=== PATIENT | female | born 1955 | race Caucasian/White ===

== ENCOUNTER → 2017-03-03 | Outpatient (CLI) | payer OTHER, MEDICARE ==
[~2017-03-03] MED LIST: ACET65TA; AMBI5TAB; AMILORIDE; DEMA20TA; ESTROGEL; INTAL; LASI20TA; LASI80TA; MELOPOW; NEUR400C; OASIS TEARS; POTA20TA; PROV90AE; RESTASIS; SEREVENT; SKEL800T5; THERGRAN; TRAM50TA2; TYLENOL ARTHRITIS; VITAMIN D50000 UNT; XOPE1.252; [UNRECOGNIZED DRUG - CODE]
--- NOTE | 2017-03-03 12:38 | REP ---
Chest two views HISTORY: Cough Comparison: 05/29/2015 An increase in interstitial markings is present in the lungs. Calcifications are present in the right hilum The heart is normal in size. The pulmonary vasculature is normal in appearance. There is deformity of several right ribs. IMPRESSION: Chronic interstitial fibrosis. Signed by Joon Gautam MD 03/03/2017 12:29 P
== END ==
LOC: M ADAMS 12:05
PROVIDERS: ATTEND Nurse Practitioner Adult Health
DX: J84.10 Pulmonary fibrosis, unspecified (principal)

== ENCOUNTER → 2017-08-31 | Outpatient (CLI) | payer OTHER, MEDICARE | LOC: M RAD 11:10 | DX: J32.4 Chronic pansinusitis (principal); J34.89 Other specified disorders of nose and nasal sinuses | CPT/HCPCS: 70486 ==

== ENCOUNTER → 2017-09-05 | Outpatient (CLI) | payer OTHER, MEDICARE | LOC: M ST 12:15 | DX: R47.02 Dysphasia (principal) | CPT/HCPCS: 74230 ==

== ENCOUNTER → 2017-12-13 | Outpatient (CLI) | payer OTHER, MEDICARE ==
[2017-12-13 10:40] LABS: BASO % 0.4 % (0.0-1.0); EOS # 0.2 10^3/uL (0.0-0.50); EOS % 1.6 % (0.0-3.0); HEMATOCRIT 40.7 % (36.0-47.0); IMMATURE GRANULOCYTE % 0.5 % (0-3.0); LYMPH # 1.6 10^3/uL (1.5-4.5); LYMPH % 17.2 % (24.0-44.0); MEAN CORPUSCULAR HGB CONC 31.9 g/dl (32.0-36.5); MEAN CORPUSCULAR VOLUME 84.6 fl (80.0-96.0); MONO # 1.1 10^3/uL (0.0-0.8); NEUTROPHILS # 6.3 10^3/uL (1.8-7.7); NEUTROPHILS % 68.3 % (36.0-66.0); PLATELET COUNT, AUTOMATED 240 10^3/uL (150-450); RED BLOOD COUNT 4.81 10^6/uL (4.00-5.40); RED CELL DISTRIBUTION WIDTH 14.9 % (11.5-14.5); WHITE BLOOD COUNT 9.3 10^3/uL (4.0-10.0)
== END ==
LOC: M LAB 10:19
DX: R05 Cough (principal); J45.41 Moderate persistent asthma with (acute) exacerbation
CPT/HCPCS: 71046

== ENCOUNTER → 2017-12-13 | Outpatient (CLI) | payer OTHER, MEDICARE | LOC: M RAD 08:01 | DX: J32.4 Chronic pansinusitis (principal) | CPT/HCPCS: 70486 ==

== ENCOUNTER 2018-03-02 10:51 | Outpatient (RCR) | payer OTHER, MEDICARE | END 2018-03-14 | LOC: M ST 10:51 | DX: R13.10 Dysphagia, unspecified (principal) | CPT/HCPCS: 92610 ==

== ENCOUNTER 2018-03-15 11:08 | Outpatient (RCR) | payer OTHER, MEDICARE | END 2018-04-13 | LOC: M ST 03-23 10:30 | DX: R13.10 Dysphagia, unspecified (principal) ==

== ENCOUNTER → 2018-10-10 | Outpatient (REF) | payer OTHER, MEDICARE | LOC: M LAB REF 16:56 | PROVIDERS: ATTEND Nurse Practitioner Adult Health | DX: R05 Cough (principal) ==

== ENCOUNTER → 2018-10-12 | Outpatient (REF) | payer OTHER, MEDICARE | LOC: M LAB REF 11:35 | PROVIDERS: ATTEND Nurse Practitioner Adult Health | DX: R05 Cough (principal); J45.41 Moderate persistent asthma with (acute) exacerbation ==

== ENCOUNTER → 2018-11-21 | Outpatient (CLI) | payer OTHER, MEDICARE ==
--- NOTE | 2018-11-21 22:38 | REP ---
Clinical: Right foot pain with recent trauma. Technique: AP, lateral, bilateral oblique views of the right foot. Findings: Diffuse age related degenerative changes are appreciated. No obvious definite acute fracture dislocation is appreciated although very small fracture fragments at the second metatarsophalangeal joint cannot definitively be excluded and should be correlated with point of tenderness. Consider reevaluation in 3-5 days if necessary. Impression: 1. Limited by degenerative changes. Very small fracture fragments at the second MTP joint cannot definitively be excluded (versus small chronic calcifications). Electronically Signed by Eduard Alvarez MD 11/21/2018 10:30 P
== END ==
LOC: M ADAMS 19:17
PROVIDERS: ATTEND Physician Assistant
DX: M79.671 Pain in right foot (principal); M19.071 Primary osteoarthritis, right ankle and foot

== ENCOUNTER → 2018-11-22 | Outpatient (CLI) | payer OTHER, MEDICARE ==
[2018-11-22 13:49] LABS: BASO % 0.8 % (0.0-1.0); EOS # 0.2 10^3/uL (0.0-0.50); EOS % 2.9 % (0.0-3.0); HEMATOCRIT 39.2 % (36.0-47.0); HEMOGLOBIN 12.8 g/dl (12.0-15.5); LYMPH # 0.8 10^3/uL (1.5-4.5); LYMPH % 14.5 % (24.0-44.0); MEAN CORPUSCULAR HEMOGLOBIN 28.2 pg (27.0-33.0); MEAN CORPUSCULAR HGB CONC 32.7 g/dl (32.0-36.5); MEAN CORPUSCULAR VOLUME 86.3 fl (80.0-96.0); MONO # 0.7 10^3/uL (0.0-0.8); MONO % 13.4 % (0.0-5.0); NEUTROPHILS # 3.6 10^3/uL (1.8-7.7); PLATELET COUNT, AUTOMATED 265 10^3/uL (150-450); RED BLOOD COUNT 4.54 10^6/uL (4.00-5.40); WHITE BLOOD COUNT 5.2 10^3/uL (4.0-10.0)
[2018-11-22 15:49] LABS: IMMUNOGLOBULIN M 25.2 MG/DL (40-230)
[2018-11-28 14:07] LABS: ANTI TETANUS ANTIBODY 1.84 IU/mL (<0.10); IMMUNOGLOBULIN D <1.34 mg/dL (<14.11); RUBEOLA IgG ANTIBODY >300.0 AU/mL (Immune >29.9); STREP PNEUMO TYPE 1 0.1 ug/mL (>1.3); STREP PNEUMO TYPE 12F <0.1 ug/mL (>1.3); STREP PNEUMO TYPE 14 1.1 ug/mL (>1.3); STREP PNEUMO TYPE 18C 0.5 ug/mL (>1.3); STREP PNEUMO TYPE 19A 0.5 ug/mL (>1.3); STREP PNEUMO TYPE 19F 0.4 ug/mL (>1.3); STREP PNEUMO TYPE 23F 0.2 ug/mL (>1.3); STREP PNEUMO TYPE 3 0.1 ug/mL (>1.3); STREP PNEUMO TYPE 4 <0.1 ug/mL (>1.3); STREP PNEUMO TYPE 6B <0.1 ug/mL (>1.3); STREP PNEUMO TYPE 7F 0.3 ug/mL (>1.3); STREP PNEUMO TYPE 8 0.5 ug/mL (>1.3); STREP PNEUMO TYPE 9N <0.1 ug/mL (>1.3); STREP PNEUMO TYPE 9V <0.1 ug/mL (>1.3)
== END ==
LOC: M SMT 10:20
PROVIDERS: ATTEND Allergy & Immunology Allergy
DX: J32.9 Chronic sinusitis, unspecified (principal); J30.89 Other allergic rhinitis; J45.40 Moderate persistent asthma, uncomplicated; D84.9 Immunodeficiency, unspecified

== ENCOUNTER → 2018-12-12 | Outpatient (REF) ==
[2018-12-12 19:55] LABS: BASO % 0.4 % (0.0-1.0); EOS # 0.2 10^3/uL (0.0-0.50); EOS % 2.2 % (0.0-3.0); HEMATOCRIT 41.4 % (36.0-47.0); LYMPH # 1.4 10^3/uL (1.5-4.5); LYMPH % 16.4 % (24.0-44.0); MEAN CORPUSCULAR HEMOGLOBIN 26.7 pg (27.0-33.0); MEAN CORPUSCULAR HGB CONC 31.4 g/dl (32.0-36.5); MEAN CORPUSCULAR VOLUME 85.2 fl (80.0-96.0); MONO # 1.2 10^3/uL (0.0-0.8); MONO % 13.7 % (0.0-5.0); NEUTROPHILS # 5.7 10^3/uL (1.8-7.7); NEUTROPHILS % 66.8 % (36.0-66.0); PLATELET COUNT, AUTOMATED 302 10^3/uL (150-450); RED BLOOD COUNT 4.86 10^6/uL (4.00-5.40); WHITE BLOOD COUNT 8.5 10^3/uL (4.0-10.0)
== END ==
LOC: M LAB REF 18:52
PROVIDERS: ATTEND Allergy & Immunology Allergy
DX: J45.40 Moderate persistent asthma, uncomplicated (principal)

== ENCOUNTER → 2018-12-21 | Outpatient (REF) | payer OTHER, MEDICARE ==
[2018-12-21 17:25] LABS: ALBUMIN 3.7 GM/DL (3.2-5.2); ALT/SGPT 29 U/L (12-78); BILIRUBIN,TOTAL 0.2 MG/DL (0.2-1.0); BLOOD UREA NITROGEN 19 MG/DL (7-18); CALCIUM LEVEL 9.5 MG/DL (8.8-10.2); CARBON DIOXIDE LEVEL 31 MEQ/L (21-32); CHLORIDE LEVEL 99 MEQ/L (98-107); CREATININE FOR GFR 0.65 MG/DL (0.55-1.30); GLOMERULAR FILTRATION RATE > 60.0 (>45); GLUCOSE, FASTING 95 MG/DL (70-100); LDH LACTATE DEHYDROGENASE 198 U/L (84-246); POTASSIUM SERUM 3.6 MEQ/L (3.5-5.1); SODIUM LEVEL 138 MEQ/L (136-145); TOTAL PROTEIN 7.7 GM/DL (6.4-8.2)
[2018-12-25 14:26] LABS: ALBUMIN % 53.3 % (55.8-66.1); ALPHA-1-GLOBULIN % 4.9 % (2.9-4.9); ALPHA-2-GLOBULINS % 12.6 % (7.1-11.8); BETA-1-GLOBULINS % 7.4 % (4.7-7.2)
[2018-12-25 14:27] LABS: ALPHA-1-GLOBULINS 0.38 GM/DL (0.17-0.41); ALPHA-2-GLOBULINS 0.97 GM/DL (0.42-0.99); BETA-1-GLOBULINS 0.57 GM/DL (0.28-0.60); BETA-2-GLOBULINS 0.56 GM/DL (0.19-0.55); BETA-2-GLOBULINS % 7.3 % (3.2-6.5); GAMMA GLOBULIN % 14.5 % (11.1-18.8); GAMMA GLOBULINS 1.12 GM/DL (0.65-1.58)
[2018-12-26 00:09] LABS: INTERLEUKIN 6 5.8 pg/mL (0.0-15.5)
== END ==
LOC: M SFHCPLAZ 13:44
PROVIDERS: ATTEND Internal Medicine Infectious Disease
DX: J32.9 Chronic sinusitis, unspecified (principal); D47.Z2 Castleman disease

== ENCOUNTER → 2018-12-27 | Outpatient (CLI) | payer OTHER, MEDICARE ==
[~2018-12-27] MED LIST changes: +ISOVUE-370 76% 100ML VIAL (Q9967) As Ordered ONE
--- NOTE | 2018-12-27 10:02 | REP ---
CT OF THE MAXILLOFACIAL BONES WITHOUT CONTRAST: Indication: Chronic sinusitis. Comparison: CT of the maxillofacial bones without contrast of 12/13/2017. Technique: Axial CT of the maxillofacial bones was performed. Bone reformatted images were provided within the axial and coronal planes. Findings: A right Harrison cell is present. Frontal sinuses: The frontal sinuses are clear bilaterally. There is mild mucosal thickening of the left frontal ethmoid recess. The right frontal ethmoid recess is clear. Ethmoid air cells: The ethmoid air cells are clear bilaterally. Sphenoid sinuses: There is mild mucosal thickening of the right sphenoid sinuses, similar to prior. The sphenoid septum inserts centrally. A segment of the internal carotid artery canals forms a portion of the posterior lateral finley of the sphenoid sinuses. Maxillary sinuses: The right maxillary sinus is clear. The ostiomeatal unit is patent. There is greater than 50% opacification of the left maxillary sinus, increased since the prior study. Mucosal thickening involves the left ostiomeatal unit. Nasal bones and septum: No spur identified. The medial finley of the orbit and cribriform plate are intact. There is a similar partial opacification of the left mastoid air cells. The right mastoid air cells are clear. Note is made of torus mandibularis. No suspicious foal osseous lesion. Impression: 1. When compared to the 12/13/2017 examination, there is increased opacification of the left maxillary sinus with opacification of the left ostiomeatal unit. 2. Partial opacification of the left mastoid air cells, similar to prior. Electronically Signed by Liliana Monsivais MD 12/27/2018 01:38 P
== END ==
LOC: M RAD 08:33
PROVIDERS: ATTEND Otolaryngology
DX: J32.0 Chronic maxillary sinusitis (principal)
CPT/HCPCS: 70486; Q9967

== ENCOUNTER → 2018-12-27 | Outpatient (CLI) | payer OTHER, MEDICARE ==
[~2018-12-27] MED LIST changes: -ISOVUE-370 76% 100ML VIAL (Q9967) As Ordered ONE
--- NOTE | 2018-12-31 18:57 | REP ---
CT chest with IV contrast: History: Right lung mass. Chronic sinusitis. Moderate asthma. Castleman disease. The patient also gives a history of prior lymphoma. Comparison CT study of the chest is from June 01, 2009. CT contrast dose: 100 ml of intravenous Isovue 370. CT findings: Digital preliminary professor of family medicine radiograph shows fusion hardware in the cervical spine. There are post thoracotomy changes in the right rib cage. No infiltrate is seen. There is no evidence of pulmonary embolus or thoracic aortic aneurysm. No pleural or pericardial effusion is seen. No adrenal lesion is observed. The visualized upper abdominal structures are unremarkable. There are clips in the gallbladder fossa. There is mild diffuse fatty infiltration of the liver. There is a heterogeneously calcified irregularly shaped mass in the anterior mediastinum which is actually a little smaller than it was June 01, 2009. There is a similar irregularly calcified mass in the right paratracheal region of the mediastinum posterior to the superior vena cava. This also has decreased in size somewhat in the interval since the May 2009 study. The calcifications and relative stability are compatible with the clinical diagnosis of Castleman disease. There are some stable vascular channels in the anterior mediastinal fat lateral to the mass. No new mass lesion is visible. Anterior mediastinal mass component has and an oblique somewhat linear distribution spanning approximately 7-1/2 cm from right to left x 4.2 cm craniocaudal x 2.1 cm in greatest anteroposterior dimension. The right paratracheal component measures approximately 4.5 x 2.5 x 2.5 cm. There are mild linear fibrotic changes in the right, and to a lesser extent left lung. No pulmonary nodule is appreciated. No bony destructive lesion is seen. 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 Post thoracotomy changes appear to be present on the right. Fatty infiltration of the liver and post cholecystectomy clips are noted. Otherwise no acute disease. Electronically Signed by Caesar Christopher MD 12/31/2018 07:03 P
== END ==
LOC: M RAD 08:30
PROVIDERS: ATTEND Internal Medicine Infectious Disease
DX: D47.Z2 Castleman disease (principal); J45.901 Unspecified asthma with (acute) exacerbation; K76.0 Fatty (change of) liver, not elsewhere classified; Z90.49 Acquired absence of other specified parts of digestive tract

== ENCOUNTER → 2019-01-21 | Outpatient (CLI) | payer OTHER, MEDICARE ==
[2019-01-25 14:42] LABS: STREP PNEUMO TYPE 1 >13.6 ug/mL (>1.3); STREP PNEUMO TYPE 12F 0.2 ug/mL (>1.3); STREP PNEUMO TYPE 14 >17.4 ug/mL (>1.3); STREP PNEUMO TYPE 18C 2.6 ug/mL (>1.3); STREP PNEUMO TYPE 19F >21.5 ug/mL (>1.3); STREP PNEUMO TYPE 23F >12.4 ug/mL (>1.3); STREP PNEUMO TYPE 3 4.4 ug/mL (>1.3); STREP PNEUMO TYPE 6B 0.6 ug/mL (>1.3); STREP PNEUMO TYPE 7F >12.9 ug/mL (>1.3); STREP PNEUMO TYPE 8 10.2 ug/mL (>1.3); STREP PNEUMO TYPE 9N 2.5 ug/mL (>1.3); STREP PNEUMO TYPE 9V 1.7 ug/mL (>1.3)
== END ==
LOC: M SMT 15:13
PROVIDERS: ATTEND Allergy & Immunology Allergy
DX: D84.9 Immunodeficiency, unspecified (principal)

== ENCOUNTER 2019-02-28 09:39 | Day surgery (SDC) | payer OTHER, MEDICARE ==
--- NOTE | 2019-02-21 19:21 | CR ---
DATE OF CONSULTATION: 02/21/2019 PREOPERATIVE CONSULTATION CONSULTATION REQUESTED BY: Dr. Carlson REASON FOR CONSULTATION: Left maxillary endoscopic antrostomy and left anterior ethmoidectomy scheduled at [facility] ([facility]) 02/28/2019. Dear Dr. Carlson, Thank you for asking me to see Ms. Kristyn Garcia in consultation prior to her upcoming surgery. As you know, Ms. Garcia is a 62-year-old female with a past medical history of bronchiectasis, Castlemans disease, chronic sinus allergies, recurrent sinusitis, asthma, presenting for preoperative optimization prior to her upcoming sinus surgery. Patient has been sick much of this year. She has been on recurrent prednisone and antibiotic courses. She is frustrated, but finally starting to feel better, is losing some weight, energy improving, activity improving. Patient has had a consultation with allergy/immunology, is now on allergy shots, titrating up slowly, noted to not be immune to Pneumovax. She had revaccination with improvement in the titer levels. Patient also was referred for her Castlemans disease to [facility]. No surgical intervention felt to be warranted. Her IgG was normal, so no infusion was recommended of gammaglobulin. 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 Patient reports discontinuation of nasal fluticasone with improvement in her dysphonia. She has had conflicting recommendations as to whether to continue on the fluticasone. Patient has chronic longstanding edema. She uses amiloride 5 mg pills daily, along with chlorthalidone 25 mg 1-2 pills daily, with added quick control of her edema. Patient had recent cardiac evaluation, showing no significant disease. Her blood pressure has been controlled with her diuretics, diltiazem and ramipril. Patient does have the asthma, Castlemans and bronchiectasis. She is using her nebulizer twice a day. She also got a SmartVest from pulmonary and is using this three times a day, feeling that it has significantly helped her breathing and congestion. Patient does have recurrent dermatitis and uses clobetasol for this. Patient has osteoarthritis (OA,) degenerative joint disease (DJD), multiple surgical interventions, sparingly uses tramadol, Skelaxin, Lidoderm, but most recent Lidoderm patches fall off, since she has not been using these. Patient has history of osteoporosis, follows with endocrine. Patient has history of gastroesophageal reflux disease (GERD), controlled on the pantoprazole. Patient otherwise denies any fevers or chills, chest pain or shortness of breath, nausea or vomiting, change of bowels. PAST MEDICAL HISTORY: 1. Hypertension. 2. Asthma. 3. Hiatal hernia/gastroesophageal reflux disease (GERD). 4. Venous insufficiency. 5. Osteoporosis with recurrent right metatarsal foot fractures. 6. Chronic sinusitis/allergic sinusitis. 7. Castlemans disease. 8. Chest pain with nuclear stress test 09/20/2018, showing no inducible disease. 9. Holter monitor 10/03/2018, showing normal sinus rhythm, rate ranging from 57-113, an average of 81, with rare ectopy. 10. Echocardiogram 08/24/2018, showing left ventricular diastolic function, showing abnormal relaxation, trace tricuspid insufficiency, aortic valve sclerosis. 11. Diverticulosis. 12. Status post cholecystectomy. 13. Obesity. 14. Contact dermatitis. 15. Scoliosis. 16. Osteoarthritis (OA,)/degenerative joint disease (DJD) status post cervical discectomy 04/25/2018. 17. Right total knee arthroplasty (TKA) 03/19/2018. 18. Total abdominal hysterectomy bilateral salpingo-oophorectomy (TAHBSO) for right adnexal mass. 19. Left thumb trapeziectomy. FAMILY HISTORY: Breast cancer (CA) in second degree relatives with a genetic screen negative in July 2017. PATIENTS MEDICATIONS: - amiloride 5 mg three pills by mouth every morning - amoxicillin before dental procedures - Anoro Ellipta one inhaled daily. - Acephaline one spray per nostril twice a day - B complex daily - calcium citrate twice a day - chlorthalidone 25 mg 1-2 pills daily - clobetasol twice a day as needed for dermatitis - Curcumax daily - diltiazem XR 120 mg daily - pantoprazole 40 mg daily - gabapentin 600 mg at bedtime - Klor-Con 20 mEq twice a day with one as needed - ramipril 2.5 mg at bedtime - Skelaxin as needed - tramadol as needed - Tylenol as needed - Vitamin B3 5000 International Units (IU) daily - Xopenex puffer and inhaler as needed - levocetirizine as needed DRUG ALLERGIES: LATEX GLOVES, ENVIRONMENTAL, SOAP, DETERGENTS, ADHESIVES, FUROSEMIDE, TORSEMIDE. INTOLERANCES: DEMEROL, AZITHROMYCIN. SOCIAL HISTORY: Happily , two children, retired nurse, never smoked, rarely consumes alcohol. FAMILY HISTORY: An aunt and first cousin with breast cancer. Father with osteoarthritis, prostatitis, macular degeneration, lymphoma. Mother with adenomatous chronic polyps, osteoarthritis, hypothyroidism, hypertension. Son with hypothyroidism. Sister with hyperlipidemia and migraines. Another sister with hyperlipidemia. A maternal uncle of colon cancer in his 60s. PHYSICAL EXAMINATION: Obese female, no acute distress. VITAL SIGNS: Weight 246 with a body mass index (BMI) of 41, blood pressure 122/72, with a heart rate of 87. Her oxygen saturation is 98% after exertion. HEENT EXAMINATION: Head is normocephalic. Neck is supple. Pupils equal, reactive to light. Extraocular movements are intact. No thyromegaly, jugular venous distention (JVD) or carotid bruits. RESPIRATORY: Clear to auscultation, resonant to percussion. Symmetric excursion. BREAST EXAM: Deferred. CARDIOVASCULAR: Regular rate and rhythm. Barely audible systolic murmur. ABDOMEN: Obese, soft, nontender. No hepatosplenomegaly. GYNECOLOGIC: Deferred. EXTREMITIES: No cyanosis or clubbing. She does have trace pretibial edema with mild venous stasis dermatitis, well-healed right TKA scar, well-healed left thumb scar. DERMATOLOGIC: No significant rashes, bruises, abnormal lesions. NEUROLOGIC: Alert and oriented. Cranial nerves II-XII are intact. Reflexes are symmetric. LABORATORY DATA: EKG 02/20/2019: Normal sinus rhythm, rate of 76, axis of 24, normal TN, QRS, QTC. Normal R-wave progression. No atrial or ventricular hypertrophy. No pathologic Q-waves. No significant change compared to previous EKG. Labs 02/21/2019: Show a normal complete blood count (CBC), metabolic profile, magnesium. IMPRESSION: Ms. Kristyn Garcia is a 63-year-old female with cardiovascular risk factors, positive for hypertension, age, who has no signs or symptoms indicative of cardiovascular ischemia and is felt to be optimized and at low risk for cardiovascular complications from the proposed surgical intervention. Risks can be further minimized by the following: PROBLEMS: 1. Asthma. Continue bronchodilator twice a day, 2-3 days before surgical intervention and a.m. of surgery, as well as Anoro Ellipta as usual. 2. Allergic rhinitis. Continue usual inhaled regimen perioperatively. 3. Hiatal hernia/gastroesophageal reflux disease (GERD). Take pantoprazole a.m. of surgery with sip of water. 4. Venous insufficiency. Hold all diuretics a.m. of surgery. 5. Hypertension. Hold diuretics a.m. of surgery. Take ramipril and diltiazem evening prior to surgery. 6. Osteopenia. Hold all calcium citrate a.m. of surgery. 7. Castlemans disease. Recent evaluation. Continue annual chest x-ray and recommendation to check SPEP annually. 8. Osteoarthritis (OA,)/degenerative joint disease (DJD). She is not on nonsteroidal anti-inflammatories (NSAIDs). She sparingly uses Skelaxin and tramadol and Tylenol and I have approved this perioperatively. She has had a joint replacement and reports taking amoxicillin before dental procedures, but notes that orthopedics has recommended IV cephalosporin preoperatively prior to surgical intervention, such as cefazolin 1 gram IV preoperatively. Thank you very much for this consultation. Please call with questions or concerns.
[~2019-02-28] VITALS: Ht 165.1 cm; Wt 109.8 kg
[~2019-02-28 09:39] MED LIST changes: +AMIL5TAB4 PO; +ANOR1AER IN; +CALC500C16 PO; +CHLO25TA GT; +CHLO50TA PO; +CLOB5CR TOP; +D31000CA4 PO; +DIALTAB PO; +DILT120C78 PO; +EPINEPHrine 1MG/ML INJ 30ML MD-VIAL As Ordered ONE; +GABA-845 PO; +KLOR20TA42 PO; +LEVA12INH INH; +LEVAINH INH; +LEVOTAB10 PO; +LIDOCAINE 1% MDV 20ML VIAL SQ PRN; +LIDOCAINE W/EPINEPHRINE 1% 20ML VIAL As Ordered ONE; +LR 1,000 ML IV ONE; +METHYLENE BLUE 0.5% (5MG/ML) 10 ML AMP (PROVAYBLUE)(Q9968 PER 1MG) As Ordered ONE; +MULTCAP PO; +PANT40TA3 PO; +RAMI1CAP21 PO; +RAMI1CAP22 PO; +SKEL800T97 PO; +SODIUM CHLORIDE 0.9% NASAL GEL 15GM (AYR) As Ordered ONE; +SSKI1SOL PO; +TRAM50TA2 PO; +dexameTHASONE 4 MG/ML 1ML VIAL (J1100) IV ONE
[2019-02-28] MEDS ORDERED: PROPOFOL 200 MG/20 ML VIAL As Ordered ONE ×2 (11:37→13:11)
[2019-02-28] MEDS ORDERED: REMIFENTANIL 1MG 3ML VIAL As Ordered ONE (11:38)
[2019-02-28] MEDS ORDERED: diphenhydrAMINE INJ 50MG/ML VIAL (J1200) As Ordered ONE (12:41)
[2019-02-28] MEDS ORDERED: LACRILUBE (AKWA TEARS) OPHTH OINT 3.5 GM As Ordered ONE (12:43)
[2019-02-28] MEDS ORDERED: LIDOCAINE 2% JELLY 6 ML SYRINGE As Ordered ONE (12:43)
[2019-02-28] MEDS ORDERED: ROCURONIUM BROMIDE 50 MG/5 ML VIAL As Ordered ONE ×2 (12:56→13:11)
[2019-02-28] MEDS ORDERED: ONDANSETRON 4MG/2ML VIAL (J2405) As Ordered ONE (13:11)
[2019-02-28] MEDS ORDERED: SUGAMMADEX SODIUM 500 MG/5 ML VIAL (BRIDION) As Ordered ONE (13:11)
[2019-02-28] MEDS ORDERED: ACETAMINOPHEN 1000MG 100ML IV BTL (OFIRMEV) (J0131 PER 10MG) As Ordered ONE ×2 (13:11→13:12)
[2019-02-28] MEDS ORDERED: MIDAZOLAM INJ 2 MG/2 ML VIAL (J2250) As Ordered ONE (13:11)
[2019-02-28] MEDS ORDERED: LIDOCAINE 2% INJ 100 MG/5 ML SDV (FOR ANES.) As Ordered ONE (13:11)
[2019-02-28] MEDS ORDERED: METOCLOPRAMIDE INJ 10MG/2ML VIAL (J2765) As Ordered ONE (13:11)
[2019-02-28] MEDS ORDERED: fentaNYL 250 MCG/5 ML INJECTION (J3010) As Ordered ONE (13:11)
[2019-02-28] MEDS ORDERED: dexameTHASONE 4 MG/ML 1ML VIAL (J1100) As Ordered ONE (13:11)
[2019-02-28] MEDS ORDERED: oxyCODONE 5MG TAB PO PRN (14:15)
[2019-02-28] MEDS ORDERED: LR 1,000 ML IV SCH ×2 (14:15)
[2019-02-28] MEDS ORDERED: fentaNYL 100 MCG/2 ML INJECTION (J3010) IV PRN (14:15)
[2019-02-28] MEDS ORDERED: ONDANSETRON 4MG/2ML VIAL (J2405) IV PRN (14:15)
[2019-02-28] MEDS ORDERED: LEVALBUTEROL 1.25 MG/0.5 ML CONCENTRATE NEB NEB ONE (14:30)
[2019-02-28 14:50] VITALS: BP 146/70
--- NOTE | 2019-04-04 11:21 | RO ---
DATE OF PROCEDURE: 02/28/2019 PREPROCEDURE DIAGNOSES: Chronic left maxillary sinusitis. Left chronic ethmoid sinusitis. POSTPROCEDURE DIAGNOSES: Chronic left maxillary sinusitis. Left chronic ethmoid sinusitis. PROCEDURE: 1. Endoscopic left maxillary antrostomy. 2. Endoscopic left anterior ethmoidectomy. 3. Stereotactic surgery using the Brainlab. 4. Propel implantation of the left stent. SURGEON: Dr. Pantera Carlson. MINER ASSISTANT: ANESTHESIA: General. CLINICAL PREAMBLE: This 63-year-old woman who has a longstanding history of chronic sinusitis and had multiple sinus surgeries done in her life, presented to the office complaining of recurrent disease localized to the left side of her face. CT scan showed evidence of left maxillary sinusitis and left ethmoid sinusitis. Management options including surgery listed above have been discussed. Patient understood and consented to the procedure. DESCRIPTION OF PROCEDURE: The patient was identified in pre-holding and brought to the operating room in stable condition. In the supine position on the operating table, patient received general anesthesia, followed by orotracheal intubation without incident. Patient prepped and draped in the usual fashion for the procedure. Both eyes were lubricated and protected using Tegaderm. The headband for the Brainlab system was then attached to the forehead successfully. Good surface matching was obtained between the diagnostic sum and the patient's facial surface anatomy. Pledgets soaked in 1:1000 epinephrine was then placed into each of the nasal cavities. After a waiting period, the pledgets were removed. Using the 0-degree nasal endoscope, the left nasal cavity was then inspected. Remnant of the left uncinate process was identified and infiltrated with ___% placed and lidocaine with 1:100,000 epinephrine. The uncinate was then resected. The left maxillary antrum was identified. Using biting forceps, the left antrostomy was then revised and enlarged. The left maxillary sinus was then copiously irrigated using saline solution. The left anterior ethmoid cells were identified and resected using the Blakesley forceps as well. Good hemostasis was observed by the end of the case. The Propel stent was inserted into the left ostiomeatal complex in order to insure medialization of the left middle nasal turbinate away from the maxillary antrum. Sponge and instrument counts were correct at the end of the procedure. Estimated blood loss was approximately 15 mL. General anesthesia was reversed and patient was extubated and brought to the recovery room in stable condition. In the recovery area, patient following symmetrical extraocular motions with no evidence of periorbital ecchymosis.
== END 2019-02-28 15:12 | disposition home or self-care (01) ==
LOC: M SDC 09:39
PROVIDERS: ATTEND Otolaryngology
DX: J32.0 Chronic maxillary sinusitis (principal); J32.2 Chronic ethmoidal sinusitis; I10 Essential (primary) hypertension; D47.Z2 Castleman disease; J30.89 Other allergic rhinitis; J45.909 Unspecified asthma, uncomplicated; J47.9 Bronchiectasis, uncomplicated; M15.0 Primary generalized (osteo)arthritis; M81.0 Age-related osteoporosis without current pathological fracture; K44.9 Diaphragmatic hernia without obstruction or gangrene; K21.9 Gastro-esophageal reflux disease without esophagitis; I87.2 Venous insufficiency (chronic) (peripheral); K57.30 Diverticulosis of large intestine without perforation or abscess without bleeding; E66.9 Obesity, unspecified; M41.9 Scoliosis, unspecified; R94.31 Abnormal electrocardiogram [ECG] [EKG]; R51 Headache; R32 Unspecified urinary incontinence; Z88.8 Allergy status to other drugs, medicaments and biological substances; Z91.018 Allergy to other foods; Z91.040 Latex allergy status; Z79.899 Other long term (current) drug therapy; Z96.651 Presence of right artificial knee joint; Z90.710 Acquired absence of both cervix and uterus; Z80.3 Family history of malignant neoplasm of breast; Z68.41 Body mass index [BMI] 40.0-44.9, adult
CPT/HCPCS: 31254; 31256; C2625; J0131; J1100; J1200; J2250; J2405; J2765; J3010; Q9968

== ENCOUNTER → 2019-04-23 | Outpatient (REF) | payer OTHER, MEDICARE ==
[~2019-04-23] MED LIST changes: -EPINEPHrine 1MG/ML INJ 30ML MD-VIAL As Ordered ONE; -LIDOCAINE 1% MDV 20ML VIAL SQ PRN; -LIDOCAINE W/EPINEPHRINE 1% 20ML VIAL As Ordered ONE; -LR 1,000 ML IV ONE; -METHYLENE BLUE 0.5% (5MG/ML) 10 ML AMP (PROVAYBLUE)(Q9968 PER 1MG) As Ordered ONE; -SODIUM CHLORIDE 0.9% NASAL GEL 15GM (AYR) As Ordered ONE; -dexameTHASONE 4 MG/ML 1ML VIAL (J1100) IV ONE
== END ==
LOC: M LAB REF 16:50
PROVIDERS: ATTEND Nurse Practitioner Adult Health
DX: J45.40 Moderate persistent asthma, uncomplicated (principal)

== ENCOUNTER → 2020-08-11 | Outpatient (CLI) | payer OTHER, MEDICARE ==
[~2020-08-11] MED LIST changes: +PANT40TA29 PO; -PANT40TA3 PO
== END ==
LOC: M LAB 17:01
PROVIDERS: ATTEND Internal Medicine Cardiovascular Disease
DX: R07.2 Precordial pain (principal)

== ENCOUNTER → 2020-11-04 | Outpatient (CLI) | payer OTHER, MEDICARE ==
[~2020-11-04] MED LIST changes: +ASPI81TA27 PO; +CURC1POW2 PO; +FLON1SPR; +GABA-283 PO; -GABA-845 PO; +HORS300C PO; +LOPE1CAP5; +METO1TAB87; +VITA200010 PO
== END ==
LOC: M LABSMTC 10:31
PROVIDERS: ATTEND Anesthesiology
DX: Z01.812 Encounter for preprocedural laboratory examination (principal); Z20.822 Contact with and (suspected) exposure to COVID-19

== ENCOUNTER 2020-11-09 09:03 | Day surgery (SDC) | payer OTHER, MEDICARE ==
[~2020-11-09] VITALS: Ht 165.1 cm; Wt 115.1 kg
[~2020-11-09 09:03] MED LIST changes: +NS 1,000 ML IV ONE
[2020-11-09] MEDS ORDERED: propofoL 200 MG/20 ML VIAL As Ordered ONE (10:09)
[2020-11-09] MEDS ORDERED: LIDOCAINE 2% 100MG/5ML SDV (FOR ANES.) As Ordered ONE (10:09)
--- NOTE | 2020-11-09 10:39 | ROOR ---
Patient Name: Kristyn Garcia Procedure Date: 11/09/2020 10:16 AM Date of : 1955 Age: 64 Room: [facility] Gender: Female Note Status: Finalized Procedure: Colonoscopy Indications: High risk colon cancer surveillance: Personal history of colonic polyps, Family history of colon cancer Providers: Keaton Hargrove MD Referring MD: Deirdre MACK MD Requesting Provider: Medicines: Monitored Anesthesia Care Complications: No immediate complications. Procedure: Pre-Anesthesia Assessment: - The heart rate, respiratory rate, oxygen saturations, blood pressure, adequacy of pulmonary ventilation, and response to care were monitored throughout the procedure. The Colonoscope was introduced through the anus and advanced to 10 cm into the ileum. The colonoscopy was performed without difficulty. The patient tolerated the procedure well. The quality of the bowel preparation was good. Findings: The perianal and digital rectal examinations were normal. A 5 mm polyp was found in the ascending colon. The polyp was sessile. The polyp was removed with a cold snare. Resection and retrieval were complete. Mild sigmoid diverticulosis and small internal hemorrhoids. The exam was otherwise without abnormality on direct and retroflexion views. Impression: - One 5 mm polyp in the ascending colon, removed with a cold snare. Resected and retrieved. - Mild sigmoid diverticulosis and small internal hemorrhoids. - The examination was otherwise normal on direct and retroflexion views. Recommendation: - Repeat colonoscopy in 5 years for surveillance. Procedure Code(s): --- Professional --- 65949, Colonoscopy, flexible; with removal of tumor(s), polyp(s), or other lesion(s) by snare technique Diagnosis Code(s): --- Professional --- Z80.0, Family history of malignant neoplasm of digestive organs Z86.010, Personal history of colonic polyps K63.5, Polyp of colon CPT copyright 2019 [employer]. All rights reserved. The codes documented in this report are preliminary and upon ballast cleaning operator review may be revised to meet current compliance requirements. Keaton Hargrove MD Keaton Hargrove MD 11/09/2020 10:38:56 AM Electronically signed by Keaton Hargrove MD Number of Addenda: 0 Note Initiated On: 11/09/2020 10:16 AM Estimated Blood Loss: Estimated blood loss: none.
[2020-11-09 11:11] VITALS: BP 132/72
== END 2020-11-09 11:12 | disposition home or self-care (01) ==
LOC: M OPP 09:03
PROVIDERS: ATTEND Internal Medicine Gastroenterology
DX: Z86.010 Personal history of colon polyps (principal); Z80.0 Family history of malignant neoplasm of digestive organs; K58.9 Irritable bowel syndrome, unspecified; D12.2 Benign neoplasm of ascending colon; K57.30 Diverticulosis of large intestine without perforation or abscess without bleeding; K64.8 Other hemorrhoids; I10 Essential (primary) hypertension; K44.9 Diaphragmatic hernia without obstruction or gangrene; K21.9 Gastro-esophageal reflux disease without esophagitis; M19.90 Unspecified osteoarthritis, unspecified site; M81.0 Age-related osteoporosis without current pathological fracture; G62.9 Polyneuropathy, unspecified; J45.909 Unspecified asthma, uncomplicated; I73.9 Peripheral vascular disease, unspecified; E66.9 Obesity, unspecified; Z88.8 Allergy status to other drugs, medicaments and biological substances; Z91.018 Allergy to other foods; Z91.040 Latex allergy status; Z79.51 Long term (current) use of inhaled steroids; Z79.82 Long term (current) use of aspirin; Z79.899 Other long term (current) drug therapy; Z80.3 Family history of malignant neoplasm of breast; Z82.49 Family history of ischemic heart disease and other diseases of the circulatory system; Z82.61 Family history of arthritis; Z83.49 Family history of other endocrine, nutritional and metabolic diseases; Z84.89 Family history of other specified conditions

== ENCOUNTER → 2021-01-04 | Outpatient (CLI) | payer MEDICARE ==
[~2021-01-04] MED LIST changes: -NS 1,000 ML IV ONE
--- NOTE | 2021-01-04 11:24 | REPMRS ---
Patient History The patient states she had a clinical breast exam in November 2020. Family history of breast cancer at age 50 or over in maternal aunt, colorectal cancer at age 50 or over in maternal uncle. Tomosynthesis is performed. Volpara breast density is a. [facility] lifetime risk of breast cancer 12.3%. 10 lb unintentional weight gain. Moderna vaccine 07/14/20 left arm. 08/11/20 left left arm. Patient states no breast complaints today. Patient has signed MRS History Sheet. Digital Woman Screen Mammo: January 04, 2021 - Exam #: [id number] Bilateral CC and MLO view(s) were taken. Technologist: RT Lyudmila Prior study comparison: August 20, 2013, bilateral digital mammo screening bilat, performed at [facility]. December 15, 2011, bilateral digital mammo screening bilat, performed at [facility]. FINDINGS: There are scattered fibroglandular densities. There has been no change in the appearance of the mammogram from the prior studies. There is a mild amount of residual fibroglandular tissue which is fairly symmetric. There is no interval development of dominant mass, architectural distortion, or clustered microcalcification suggestive of malignancy. Assessment: BI-RADS/ACR category 1 mammogram. Negative Mammogram. Recommendation Routine screening mammogram in 1 year (for women over age 40). This mammogram was interpreted with the aid of an FDA-approved computer-aided dectection system. Electronically Signed By: Pérez Vuong MD 01/04/21 [id number]
== END ==
LOC: M WHC 10:03
PROVIDERS: ATTEND Internal Medicine
DX: Z12.31 Encounter for screening mammogram for malignant neoplasm of breast (principal); M81.0 Age-related osteoporosis without current pathological fracture

== ENCOUNTER → 2021-01-06 | Outpatient (CLI) | payer MEDICARE ==
--- NOTE | 2021-01-06 14:02 | DEXAMM ---
INDICATION: M81.0 AGE RELATED OSTEOPOROSIS. COMPARISON: Comparison study February 01, 2000. TECHNIQUE: Bone density was measured using dual-energy x-ray absorptionmetry (DEXA). FINDINGS: AP SPINE L1-L4 BMD 1.256 g/cm2 Young Adult T-Score 0.6 Age Matched Z-Score 2.2. LT FEMUR, TOTAL BMD 0.880 g/cm2 Young Adult T-Score -1.0 Age Matched Z-Score 0.2. LT NECK BMD 0.845 g/cm2 Young Adult T-Score -1.4 Age Matched Z-Score 0.1. RT FEMUR, TOTAL BMD 0.929 g/cm2 Young Adult T-Score -0.6 Age Matched Z-Score 0.6. RT NECK BMD 0.889 g/cm2 Young Adult T-Score -1.1 Age Matched Z-Score 0.4. IMPRESSION: There is normal bone density of the spine. There is low bone density of the left hip. There is low bone density of the right hip. The density of the spine has increased 18.9% since the initial exam on February 01, 2000. The density of the left hip has decreased 14.2% since initial exam on February 01, 2000. The density of the right hip has decreased 5.3% since the initial exam on February 01, 2000. FOLLOW-UP: Recommendation for the next bone density exam: 5 years. <Electronically signed by William Christopher > 01/06/21 [id number]
== END ==
LOC: M WHC 13:08
PROVIDERS: ATTEND Internal Medicine
DX: M81.0 Age-related osteoporosis without current pathological fracture (principal)

== ENCOUNTER → 2022-09-08 | Outpatient (CLI) | payer MEDICARE ==
[~2022-09-08] MED LIST changes: -HORS300C PO; +HORS300C2 PO; -KLOR20TA42 PO; +POTA-141 PO
== END ==
LOC: M PLAIMG 13:43
PROVIDERS: ATTEND Internal Medicine
DX: M25.551 Pain in right hip (principal)

== ENCOUNTER → 2022-10-28 | Outpatient (CLI) | payer MEDICARE | LOC: M RAD 15:07 | PROVIDERS: ATTEND Internal Medicine | DX: M54.41 Lumbago with sciatica, right side (principal) ==

== ENCOUNTER → 2022-11-11 | Outpatient (CLI) | payer MEDICARE ==
[~2022-11-11] MED LIST changes: +PROHANCE 279.3MG/ML 15ML VIAL As Ordered ONE; +PROHANCE 279.3MG/ML 5ML VIAL As Ordered ONE
== END ==
LOC: M RAD 09:08
PROVIDERS: ATTEND Nurse Practitioner
DX: R93.7 Abnormal findings on diagnostic imaging of other parts of musculoskeletal system (principal); M54.50 Low back pain, unspecified; G89.29 Other chronic pain; M43.16 Spondylolisthesis, lumbar region; M54.16 Radiculopathy, lumbar region
CPT/HCPCS: 72158; A9576

== ENCOUNTER → 2022-11-17 | Outpatient (CLI) | payer MEDICARE ==
[~2022-11-17] MED LIST changes: -PROHANCE 279.3MG/ML 15ML VIAL As Ordered ONE; -PROHANCE 279.3MG/ML 5ML VIAL As Ordered ONE
== END ==
LOC: M PLAIMG 15:56
PROVIDERS: ATTEND Internal Medicine Pulmonary Disease
DX: G89.11 Acute pain due to trauma (principal)

== ENCOUNTER → 2022-12-30 | Outpatient (CLI) | payer MEDICARE ==
[~2022-12-30] MED LIST changes: +BACL10TA2 PO; +CHLO125TA PO; +FLON27.5 NARES; -GABA-283 PO; +GABA-284 PO; +GABA600T4 PO; -LOPE1CAP5; +LOPE1CAP5 PO; -METO1TAB87; +METO1TAB87 PO
== END ==
LOC: M PLAIMG 14:49
PROVIDERS: ATTEND Physical Medicine & Rehabilitation
DX: M25.511 Pain in right shoulder (principal)

== ENCOUNTER 2023-01-05 15:57 | Inpatient (IN) | payer MEDICARE ==
[~2023-01-05] VITALS: Ht 165.1 cm; Wt 111.5 kg
[~2023-01-05 15:57] MED LIST changes: -ANOR1AER IN; +ANOR1AER INH; -BACL10TA2 PO; -CHLO125TA PO; -FLON27.5 NARES; -GABA600T4 PO
[2023-01-05] MEDS ORDERED: MORPHINE 4 MG/ML 1ML VIAL IV ONE (16:15)
[2023-01-05] MEDS ORDERED: ONDANSETRON 4MG 2ML VIAL IV ONE (16:15)
[2023-01-05 16:42] LABS: BASO % 0.3 % (0.0-1.0); EOS # 0.1 10^3/uL (0.0-0.5); EOS % 1.1 % (0.0-3.0); HEMATOCRIT 44.3 % (36.0-47.0); HEMOGLOBIN 14.1 g/dl (12.0-15.5); LYMPH # 2.2 10^3/uL (1.5-5.0); LYMPH % 17.9 % (24.0-44.0); MEAN CORPUSCULAR HEMOGLOBIN 26.7 pg (27.0-33.0); MEAN CORPUSCULAR HGB CONC 31.8 g/dl (32.0-36.5); MEAN CORPUSCULAR VOLUME 83.7 fl (80.0-96.0); MONO % 8.4 % (2.0-8.0); NEUTROPHILS # 8.7 10^3/uL (1.5-8.5); NEUTROPHILS % 71.5 % (36.0-66.0); PLATELET COUNT, AUTOMATED 313 10^3/uL (150-450); RED BLOOD COUNT 5.29 10^6/uL (4.00-5.40); WHITE BLOOD COUNT 12.2 10^3/uL (4.0-10.0)
[2023-01-05 16:59] LABS: BLOOD UREA NITROGEN 25 MG/DL (9-23); CALCIUM LEVEL 9.8 MG/DL (8.3-10.6); CARBON DIOXIDE LEVEL 30 MMOL/L (20-31); CHLORIDE LEVEL 99 MMOL/L (98-107); GLOMERULAR FILTRATION RATE > 60.0 (>45); GLUCOSE, FASTING 100 MG/DL (74-106); POTASSIUM SERUM 4.3 MMOL/L (3.5-5.1); SODIUM LEVEL 136 MMOL/L (136-145)
[2023-01-05] MEDS ORDERED: MORPHINE 2 MG/ML 1ML VIAL IV PRN (18:00)
[2023-01-05] MEDS: MORPHINE 2 MG/ML 1ML VIAL IV PRN (18:08)
[2023-01-05] MEDS: NS 1,000 ML IV SCH (18:11)
[2023-01-05] MEDS ORDERED: MED REC IN PROGRESS XX SCH ×2 (19:05→19:10)
[2023-01-05] MEDS: SYMBICORT 160/4.5MCG INHALER 6GM INH SCH (20:00)
[2023-01-05 20:06] LABS: INR 1.04; PROTHROMBIN TIME 13.3 SECONDS (12.5-14.5)
[2023-01-05] MEDS ORDERED: GABA600T4 PO (20:38)
[2023-01-05] MEDS ORDERED: TRAM50TA2 PO (20:38)
[2023-01-05] MEDS ORDERED: CHLO125TA PO (20:38)
[2023-01-05] MEDS ORDERED: BACL10TA2 PO (20:38)
[2023-01-05] MEDS ORDERED: FLON27.5 NARES (20:45)
[2023-01-05] MEDS ORDERED: HOME MED LIST COMPLETE! XX SCH (20:50)
[2023-01-05 21:00] VITALS: BP 143/65; TEMP 98; O2SAT 97
[2023-01-05] MEDS ORDERED: KETOROLAC 30 MG/ML 1ML VIAL IV ONE (21:30)
[2023-01-05] MEDS ORDERED: oxyCODONE 5MG TAB PO ONE (21:30)
[2023-01-05] MEDS: GABAPENTIN 300 MG CAP PO SCH (21:48)
[2023-01-05] MEDS: PANTOPRAZOLE 40MG VIAL IV SCH (21:49)
[2023-01-05] MEDS: METOPROLOL TART 25 MG TABLET PO SCH (21:49)
[2023-01-05] MEDS: BACLOFEN 10 MG TAB PO PRN (21:49)
[2023-01-06] MEDS: MORPHINE 2 MG/ML 1ML VIAL IV PRN ×2 (01:00→05:18)
[2023-01-06] MEDS: NS 1,000 ML IV SCH (01:00)
[2023-01-06 05:15] VITALS: BP 123/60; TEMP 97.1; O2SAT 97
[2023-01-06] MEDS: BACLOFEN 10 MG TAB PO PRN ×2 (06:02→14:17)
[2023-01-06 06:47] LABS: HEMATOCRIT 37.8 % (36.0-47.0); MEAN CORPUSCULAR HEMOGLOBIN 26.9 pg (27.0-33.0); MEAN CORPUSCULAR VOLUME 84.2 fl (80.0-96.0); PLATELET COUNT, AUTOMATED 222 10^3/uL (150-450); RED BLOOD COUNT 4.49 10^6/uL (4.00-5.40); WHITE BLOOD COUNT 8.2 10^3/uL (4.0-10.0)
[2023-01-06 06:52] LABS: HEMOGLOBIN 12.1 g/dl (12.0-15.5)
[2023-01-06 07:15] LABS: ALBUMIN 3.2 G/DL (3.2-5.2); ALKALINE PHOSPHATASE 119 U/L (46-116); ALT/SGPT 17 U/L (7.0-40); AST/SGOT < 8 U/L (<34); BILIRUBIN,TOTAL 0.7 MG/DL (0.3-1.2); BLOOD UREA NITROGEN 19 MG/DL (9-23); CALCIUM LEVEL 8.4 MG/DL (8.3-10.6); CARBON DIOXIDE LEVEL 31 MMOL/L (20-31); CHLORIDE LEVEL 100 MMOL/L (98-107); CREATININE FOR GFR 0.71 MG/DL (0.55-1.30); GLOMERULAR FILTRATION RATE > 60.0 (>45); GLUCOSE, FASTING 87 MG/DL (74-106); SODIUM LEVEL 136 MMOL/L (136-145); TOTAL PROTEIN 6.4 G/DL (5.7-8.2)
[2023-01-06] MEDS ORDERED: LEVALBUTEROL 1.25MG 0.5ML CONCENTRATE NEB INH PRN (07:20)
[2023-01-06] MEDS ORDERED: LEVALBUTEROL HFA 45MCG/ACT 15GM INHALER INH PRN (07:20)
[2023-01-06] MEDS ORDERED: LEVA1.2525 INH (07:45)
[2023-01-06] MEDS ORDERED: HOME MED LIST COMPLETE! XX SCH (07:50)
[2023-01-06] MEDS ORDERED: MORPHINE 4 MG/ML 1ML VIAL IV ONE (08:00)
[2023-01-06] MEDS: METOPROLOL TART 25 MG TABLET PO SCH (08:00)
[2023-01-06] MEDS ORDERED: SYMBICORT 160/4.5MCG INHALER 6GM INH SCH (08:00)
[2023-01-06] MEDS ORDERED: MIRALAX *UNIT DOSE* 17GM PACKET PO PRN (08:05)
[2023-01-06] MEDS: SYMBICORT 160/4.5MCG INHALER 6GM INH SCH ×3 (08:30→20:00)
[2023-01-06] MEDS: DOCUSATE SODIUM 100MG CAPSULE PO SCH (10:22)
[2023-01-06] MEDS: aMILoride 5 MG TAB PO SCH (12:10)
[2023-01-06] MEDS: MORPHINE 4 MG/ML 1ML VIAL IV PRN ×2 (12:10→16:20)
[2023-01-06 14:00] VITALS: BP 123/63; TEMP 97.4; O2SAT 98
[2023-01-06] MEDS: ACETAMINOPHEN TAB 650MG DOSE (2X325MG) PO PRN (14:17)
[2023-01-06] MEDS ORDERED: HYDROMORPHONE HCL 0.5 MG/ 0.5 ML SYRINGE IV PRN (16:40)
[2023-01-06] MEDS ORDERED: MEPERIDINE 25 MG/ML 1ML VIAL IV PRN (16:40)
[2023-01-06] MEDS ORDERED: ONDANSETRON 4MG 2ML VIAL IV PRN (16:40)
[2023-01-06] MEDS ORDERED: oxyCODONE 5MG TAB PO PRN (16:40)
[2023-01-06] MEDS ORDERED: fentaNYL 100 MCG/2 ML INJECTION As Ordered ONE ×2 (19:02→20:52)
[2023-01-06] MEDS ORDERED: MIDAZOLAM INJ 2MG/2ML VIAL As Ordered ONE (19:02)
[2023-01-06] MEDS ORDERED: LIDOCAINE 2% 100MG/5ML SDV (FOR ANES.) As Ordered ONE (19:03)
[2023-01-06] MEDS ORDERED: ROCURONIUM BROMIDE 50MG/5ML VIAL As Ordered ONE ×2 (19:03→20:49)
[2023-01-06] MEDS ORDERED: ONDANSETRON 4MG 2ML VIAL As Ordered ONE ×2 (19:04→23:24)
[2023-01-06] MEDS ORDERED: propofoL 200 MG/20 ML VIAL As Ordered ONE (19:04)
[2023-01-06] MEDS ORDERED: TRANEXAMIC ACID 100 MG/ML 10ML VIAL As Ordered ONE (19:16)
[2023-01-06] MEDS ORDERED: ceFAZolin 2 GM/D5W 50 ML IV BAG As Ordered ONE (19:23)
[2023-01-06] MEDS ORDERED: LIDOCAINE 1% MDV 20ML VIAL As Ordered ONE (19:24)
[2023-01-06] MEDS ORDERED: LIDOCAINE 1% MDV 20ML VIAL ONE (19:24)
[2023-01-06] MEDS ORDERED: VANCOMYCIN 1000MG/20ML VIAL ONE (19:24)
[2023-01-06] MEDS ORDERED: ceFAZolin 1GM VIAL As Ordered ONE (20:35)
[2023-01-06] MEDS ORDERED: dilTIAZem 120MG **CD** CAPSULE PO SCH (21:00)
[2023-01-06] MEDS ORDERED: VANCOMYCIN 1000MG/20ML VIAL As Ordered ONE (21:53)
[2023-01-06] MEDS ORDERED: ACETAMINOPHEN 1000MG 100ML IV BAG As Ordered ONE (21:58)
[2023-01-06] MEDS ORDERED: SUGAMMADEX SODIUM 500 MG/5 ML VIAL (BRIDION) As Ordered ONE (22:07)
[2023-01-06] MEDS: fentaNYL 100 MCG/2 ML INJECTION IV PRN ×2 (23:28→23:35)
[2023-01-06] MEDS ORDERED: METOCLOPRAMIDE INJ 10MG/2ML VIAL IV PRN (23:50)
[2023-01-07] VITALS (16 sets, daily range): BP systolic 72–147; BP diastolic 54–82; TEMP 96–98.7; O2SAT 92–99
[2023-01-07] MEDS ORDERED: LR 1,000 ML IV SCH ×2 (00:45→00:50)
[2023-01-07] MEDS: GABAPENTIN 300 MG CAP PO SCH ×2 (01:00→22:19)
[2023-01-07] MEDS: PANTOPRAZOLE 40MG VIAL IV SCH ×2 (01:00→22:19)
[2023-01-07] MEDS: DOCUSATE SODIUM 100MG CAPSULE PO SCH ×3 (01:00→22:19)
[2023-01-07] MEDS: SENNA 8.6 MG TAB (SENOKOT) PO SCH ×2 (01:00→22:20)
[2023-01-07] MEDS: METOPROLOL TART 25 MG TABLET PO SCH ×2 (01:01→09:07)
[2023-01-07] MEDS: MORPHINE 2 MG/ML 1ML VIAL IV PRN (01:37)
[2023-01-07] MEDS: ACETAMINOPHEN TAB 650MG DOSE (2X325MG) PO PRN ×3 (06:18→22:20)
[2023-01-07 06:45] LABS: HEMOGLOBIN 10.3 g/dl (12.0-15.5); MEAN CORPUSCULAR HEMOGLOBIN 26.8 pg (27.0-33.0); MEAN CORPUSCULAR HGB CONC 32.2 g/dl (32.0-36.5); MEAN CORPUSCULAR VOLUME 83.3 fl (80.0-96.0); PLATELET COUNT, AUTOMATED 165 10^3/uL (150-450); RED BLOOD COUNT 3.84 10^6/uL (4.00-5.40); WHITE BLOOD COUNT 13.1 10^3/uL (4.0-10.0)
[2023-01-07 07:18] LABS: ALBUMIN 2.7 G/DL (3.2-5.2); ALKALINE PHOSPHATASE 113 U/L (46-116); ALT/SGPT 17 U/L (7.0-40); AST/SGOT 14 U/L (<34); BILIRUBIN,TOTAL 0.5 MG/DL (0.3-1.2); BLOOD UREA NITROGEN 14 MG/DL (9-23); CALCIUM LEVEL 8.5 MG/DL (8.3-10.6); CARBON DIOXIDE LEVEL 27 MMOL/L (20-31); CHLORIDE LEVEL 101 MMOL/L (98-107); CREATININE FOR GFR 0.51 MG/DL (0.55-1.30); GLOMERULAR FILTRATION RATE > 60.0 (>45); GLUCOSE, FASTING 140 MG/DL (74-106); POTASSIUM SERUM 4.5 MMOL/L (3.5-5.1); SODIUM LEVEL 137 MMOL/L (136-145); TOTAL PROTEIN 5.7 G/DL (5.7-8.2)
[2023-01-07] MEDS: SYMBICORT 160/4.5MCG INHALER 6GM INH SCH ×2 (07:56→20:00)
[2023-01-07] MEDS: BACLOFEN 10 MG TAB PO PRN ×2 (09:06→22:19)
[2023-01-07] MEDS: aMILoride 5 MG TAB PO SCH (09:07)
[2023-01-07] MEDS ORDERED: NS 500 ML IV ONE (14:45)
[2023-01-07 17:41] LABS: HEMATOCRIT 29.1 % (36.0-47.0); HEMOGLOBIN 9.4 g/dl (12.0-15.5); MEAN CORPUSCULAR HEMOGLOBIN 27.1 pg (27.0-33.0); MEAN CORPUSCULAR HGB CONC 32.3 g/dl (32.0-36.5); MEAN CORPUSCULAR VOLUME 83.9 fl (80.0-96.0); PLATELET COUNT, AUTOMATED 137 10^3/uL (150-450); RED BLOOD COUNT 3.47 10^6/uL (4.00-5.40); WHITE BLOOD COUNT 13.9 10^3/uL (4.0-10.0)
[2023-01-07] MEDS: MORPHINE 4 MG/ML 1ML VIAL IV PRN ×2 (19:34→23:38)
[2023-01-07] MEDS: METOPROLOL TART 12.5 MG PER 1/2 TAB PO SCH (22:21)
[2023-01-08] VITALS (9 sets, daily range): BP systolic 115–155; BP diastolic 54–90; TEMP 97.2–99.1; O2SAT 90–96
[2023-01-08 02:27] LABS: HEMATOCRIT 27.7 % (36.0-47.0); MEAN CORPUSCULAR HEMOGLOBIN 27.6 pg (27.0-33.0); MEAN CORPUSCULAR HGB CONC 32.5 g/dl (32.0-36.5); PLATELET COUNT, AUTOMATED 101 10^3/uL (150-450); RED BLOOD COUNT 3.26 10^6/uL (4.00-5.40); WHITE BLOOD COUNT 11.5 10^3/uL (4.0-10.0)
[2023-01-08] MEDS: ACETAMINOPHEN TAB 650MG DOSE (2X325MG) PO PRN (05:57)
[2023-01-08] MEDS: MORPHINE 2 MG/ML 1ML VIAL IV PRN (05:58)
[2023-01-08] MEDS: BACLOFEN 10 MG TAB PO PRN ×3 (06:04→21:53)
[2023-01-08 07:16] LABS: HEMATOCRIT 28.1 % (36.0-47.0); MEAN CORPUSCULAR HEMOGLOBIN 27.2 pg (27.0-33.0); MEAN CORPUSCULAR VOLUME 84.9 fl (80.0-96.0); PLATELET COUNT, AUTOMATED 101 10^3/uL (150-450); RED BLOOD COUNT 3.31 10^6/uL (4.00-5.40); WHITE BLOOD COUNT 9.4 10^3/uL (4.0-10.0)
[2023-01-08 07:39] LABS: ALBUMIN 2.6 G/DL (3.2-5.2); ALKALINE PHOSPHATASE 96 U/L (46-116); ALT/SGPT 13 U/L (7.0-40); AST/SGOT 14 U/L (<34); BILIRUBIN,TOTAL 0.6 MG/DL (0.3-1.2); BLOOD UREA NITROGEN 14 MG/DL (9-23); CALCIUM LEVEL 8.1 MG/DL (8.3-10.6); CARBON DIOXIDE LEVEL 30 MMOL/L (20-31); CHLORIDE LEVEL 99 MMOL/L (98-107); CREATININE FOR GFR 0.57 MG/DL (0.55-1.30); GLOMERULAR FILTRATION RATE > 60.0 (>45); GLUCOSE, FASTING 103 MG/DL (74-106); POTASSIUM SERUM 3.5 MMOL/L (3.5-5.1); SODIUM LEVEL 136 MMOL/L (136-145); TOTAL PROTEIN 5.5 G/DL (5.7-8.2)
[2023-01-08] MEDS: SYMBICORT 160/4.5MCG INHALER 6GM INH SCH (07:45)
[2023-01-08] MEDS: METOPROLOL TART 12.5 MG PER 1/2 TAB PO SCH (09:00)
[2023-01-08] MEDS: aMILoride 5 MG TAB PO SCH (09:35)
[2023-01-08] MEDS: DOCUSATE SODIUM 100MG CAPSULE PO SCH ×2 (09:35→21:53)
[2023-01-08] MEDS: PERCOCET 5MG/325MG TAB PO PRN (10:38)
[2023-01-08] MEDS: MORPHINE 4 MG/ML 1ML VIAL IV PRN ×2 (15:14→22:23)
[2023-01-08 15:48] LABS: CK-MB VALUE MASS < 1.0 NG/ML (<3.6)
[2023-01-08 15:49] LABS: CPK CREATINE PHOSPHOKINASE 202 U/L (34-145); MB/CK RELATIVE INDEX 0.49 (< OR =4)
[2023-01-08 16:48] LABS: HEMATOCRIT 28.1 % (36.0-47.0); HEMOGLOBIN 9.2 g/dl (12.0-15.5); MEAN CORPUSCULAR HEMOGLOBIN 27.5 pg (27.0-33.0); MEAN CORPUSCULAR HGB CONC 32.7 g/dl (32.0-36.5); MEAN CORPUSCULAR VOLUME 83.9 fl (80.0-96.0); PLATELET COUNT, AUTOMATED 107 10^3/uL (150-450); RED BLOOD COUNT 3.35 10^6/uL (4.00-5.40); WHITE BLOOD COUNT 12.2 10^3/uL (4.0-10.0)
[2023-01-08] MEDS: METOPROLOL TART 25 MG TABLET PO SCH ×2 (16:48→21:54)
[2023-01-08] MEDS ORDERED: ISOVUE-370 76% 100ML VIAL As Ordered ONE (16:49)
[2023-01-08 17:11] LABS: ALBUMIN 2.7 G/DL (3.2-5.2); ALKALINE PHOSPHATASE 103 U/L (46-116); ALT/SGPT 15 U/L (7.0-40); AST/SGOT 19 U/L (<34); BILIRUBIN,TOTAL 0.4 MG/DL (0.3-1.2); BLOOD UREA NITROGEN 14 MG/DL (9-23); CALCIUM LEVEL 8.5 MG/DL (8.3-10.6); CARBON DIOXIDE LEVEL 29 MMOL/L (20-31); CHLORIDE LEVEL 100 MMOL/L (98-107); CREATININE FOR GFR 0.49 MG/DL (0.55-1.30); GLOMERULAR FILTRATION RATE > 60.0 (>45); GLUCOSE, FASTING 109 MG/DL (74-106); POTASSIUM SERUM 3.9 MMOL/L (3.5-5.1); SODIUM LEVEL 135 MMOL/L (136-145); TOTAL PROTEIN 5.9 G/DL (5.7-8.2)
[2023-01-08] MEDS ORDERED: HEPARIN DRIP 25,000 UNITS in IV 1 EA IV SCH (18:40)
[2023-01-08] MEDS ORDERED: HEPARIN SOD (PORCINE) 5000UNITS/ML 1ML VIAL/SYRINGE IV PRN (18:45)
[2023-01-08] MEDS ORDERED: HEPARIN SOD (PORCINE) 5000UNITS/ML 1ML VIAL/SYRINGE IV ONE (18:45)
[2023-01-08 19:38] LABS: CK-MB VALUE MASS 1.4 NG/ML (<3.6)
[2023-01-08 19:40] LABS: MB/CK RELATIVE INDEX 0.69 (< OR =4)
[2023-01-08 19:55] LABS: MAGNESIUM LEVEL 1.9 MG/DL (1.8-2.4); PHOSPHORUS LEVEL 2.4 MG/DL (2.4-5.1)
[2023-01-08] MEDS: HEPARIN DRIP 25,000 UNITS in IV 1 EA IV SCH (20:09)
[2023-01-08] MEDS ORDERED: METOPROLOL TART 25 MG TABLET PO SCH (21:00)
[2023-01-08] MEDS: GABAPENTIN 300 MG CAP PO SCH (21:53)
[2023-01-08] MEDS: SENNA 8.6 MG TAB (SENOKOT) PO SCH (21:53)
[2023-01-08] MEDS: PANTOPRAZOLE 40MG VIAL IV SCH (21:53)
[2023-01-09] VITALS (14 sets, daily range): BP systolic 95–127; BP diastolic 50–87; TEMP 97.9–98.8; O2SAT 92–99
[2023-01-09 01:51] LABS: HEMATOCRIT 25.6 % (36.0-47.0); HEMOGLOBIN 8.4 g/dl (12.0-15.5)
[2023-01-09 06:02] LABS: HEMATOCRIT 25.9 % (36.0-47.0); HEMOGLOBIN 8.3 g/dl (12.0-15.5); MEAN CORPUSCULAR HEMOGLOBIN 27.1 pg (27.0-33.0); MEAN CORPUSCULAR VOLUME 84.6 fl (80.0-96.0); PLATELET COUNT, AUTOMATED 114 10^3/uL (150-450); RED BLOOD COUNT 3.06 10^6/uL (4.00-5.40); WHITE BLOOD COUNT 9.3 10^3/uL (4.0-10.0)
[2023-01-09 06:08] LABS: CK-MB VALUE MASS 1.2 NG/ML (<3.6)
[2023-01-09 06:09] LABS: MB/CK RELATIVE INDEX 0.72 (< OR =4)
[2023-01-09 06:10] LABS: ALBUMIN 2.5 G/DL (3.2-5.2); ALKALINE PHOSPHATASE 97 U/L (46-116); ALT/SGPT 14 U/L (7.0-40); AST/SGOT 16 U/L (<34); BILIRUBIN,TOTAL 0.4 MG/DL (0.3-1.2); BLOOD UREA NITROGEN 11 MG/DL (9-23); CALCIUM LEVEL 8.3 MG/DL (8.3-10.6); CARBON DIOXIDE LEVEL 32 MMOL/L (20-31); CHLORIDE LEVEL 102 MMOL/L (98-107); CREATININE FOR GFR 0.54 MG/DL (0.55-1.30); GLOMERULAR FILTRATION RATE > 60.0 (>45); GLUCOSE, FASTING 96 MG/DL (74-106); POTASSIUM SERUM 4.1 MMOL/L (3.5-5.1); SODIUM LEVEL 139 MMOL/L (136-145); TOTAL PROTEIN 5.4 G/DL (5.7-8.2)
[2023-01-09] MEDS: aMILoride 5 MG TAB PO SCH (08:11)
[2023-01-09] MEDS: DOCUSATE SODIUM 100MG CAPSULE PO SCH ×2 (08:11→21:00)
[2023-01-09] MEDS: METOPROLOL TART 25 MG TABLET PO SCH ×2 (08:12→21:00)
[2023-01-09] MEDS: PERCOCET 5MG/325MG TAB PO PRN (10:25)
[2023-01-09] MEDS ORDERED: ISOVUE-370 76% 100ML VIAL As Ordered ONE (10:57)
[2023-01-09] MEDS: HEPARIN DRIP 25,000 UNITS in IV 1 EA IV SCH (11:04)
[2023-01-09] MEDS ORDERED: HEPARIN SOD (PORCINE) 5000UNITS/ML 1ML VIAL/SYRINGE IV ONE (11:55)
[2023-01-09] MEDS ORDERED: fentaNYL 100 MCG/2 ML INJECTION As Ordered ONE ×3 (15:17→20:23)
[2023-01-09] MEDS ORDERED: ISOVUE-300 61% 100ML VIAL As Ordered ONE (15:17)
[2023-01-09] MEDS ORDERED: MIDAZOLAM INJ 2MG/2ML VIAL As Ordered ONE ×2 (15:18→19:38)
[2023-01-09] MEDS ORDERED: LIDOCAINE 1% MDV 20ML VIAL As Ordered ONE (15:18)
[2023-01-09] MEDS ORDERED: HEPARIN 1,000UNITS/ML 10ML VIAL (FOR RADIOLOGY & DIALYSIS ONLY) As Ordered ONE (15:18)
[2023-01-09] MEDS ORDERED: NS 1,000 ML IV SCH (15:35)
[2023-01-09] MEDS ORDERED: ceFAZolin SOD 2 GM in IV 1 EA IV ONE (15:35)
[2023-01-09] MEDS: MORPHINE 4 MG/ML 1ML VIAL IV PRN (17:24)
[2023-01-09 18:12] LABS: HEMATOCRIT 30.4 % (36.0-47.0); HEMOGLOBIN 9.8 g/dl (12.0-15.5); MEAN CORPUSCULAR HEMOGLOBIN 27.5 pg (27.0-33.0); MEAN CORPUSCULAR HGB CONC 32.2 g/dl (32.0-36.5); MEAN CORPUSCULAR VOLUME 85.4 fl (80.0-96.0); PLATELET COUNT, AUTOMATED 133 10^3/uL (150-450); RED BLOOD COUNT 3.56 10^6/uL (4.00-5.40)
[2023-01-09 18:25] LABS: INR 1.08; PARTIAL THROMBOPLASTIN TIME 24.3 SECONDS (24.8-34.2); PROTHROMBIN TIME 13.7 SECONDS (12.5-14.5)
[2023-01-09 18:43] LABS: ALBUMIN 2.6 G/DL (3.2-5.2); ALKALINE PHOSPHATASE 103 U/L (46-116); ALT/SGPT 16 U/L (7.0-40); AST/SGOT 19 U/L (<34); BILIRUBIN,TOTAL 0.6 MG/DL (0.3-1.2); BLOOD UREA NITROGEN 13 MG/DL (9-23); CALCIUM LEVEL 8.4 MG/DL (8.3-10.6); CARBON DIOXIDE LEVEL 28 MMOL/L (20-31); CHLORIDE LEVEL 101 MMOL/L (98-107); CREATININE FOR GFR 0.48 MG/DL (0.55-1.30); GLOMERULAR FILTRATION RATE > 60.0 (>45); GLUCOSE, FASTING 88 MG/DL (74-106); POTASSIUM SERUM 3.8 MMOL/L (3.5-5.1); SODIUM LEVEL 139 MMOL/L (136-145); TOTAL PROTEIN 5.8 G/DL (5.7-8.2)
[2023-01-09] MEDS ORDERED: propofoL 200 MG/20 ML VIAL As Ordered ONE ×2 (19:38→20:19)
[2023-01-09] MEDS ORDERED: LIDOCAINE 2% 100MG/5ML SDV (FOR ANES.) As Ordered ONE (19:38)
[2023-01-09] MEDS ORDERED: ONDANSETRON 4MG 2ML VIAL As Ordered ONE (19:41)
[2023-01-09] MEDS ORDERED: ceFAZolin 1GM VIAL As Ordered ONE (19:58)
[2023-01-09] MEDS ORDERED: ceFAZolin 1GM VIAL ONE (20:00)
[2023-01-09] MEDS ORDERED: VANCOMYCIN 1000MG/20ML VIAL ONE (20:00)
[2023-01-09] MEDS ORDERED: PHENYLephrine 500MCG 5ML (100MCG/ML) SYRINGE As Ordered ONE (20:07)
[2023-01-09] MEDS ORDERED: ACETAMINOPHEN 1000MG 100ML IV BAG As Ordered ONE (20:33)
[2023-01-09] MEDS ORDERED: VANCOMYCIN 1000MG/20ML VIAL As Ordered ONE (20:55)
[2023-01-09] MEDS: GABAPENTIN 300 MG CAP PO SCH (21:00)
[2023-01-09] MEDS: SENNA 8.6 MG TAB (SENOKOT) PO SCH (21:00)
[2023-01-09] MEDS: PANTOPRAZOLE 40MG VIAL IV SCH (21:00)
[2023-01-09] MEDS ORDERED: oxyCODONE 5MG TAB PO PRN (21:45)
[2023-01-09] MEDS ORDERED: fentaNYL 100 MCG/2 ML INJECTION IV PRN (21:45)
[2023-01-09] MEDS ORDERED: LR 1,000 ML IV SCH (21:45)
[2023-01-09] MEDS ORDERED: ONDANSETRON 4MG 2ML VIAL IV PRN (21:45)
[2023-01-09] MEDS: HYDROMORPHONE HCL 0.5 MG/ 0.5 ML SYRINGE IV PRN ×2 (23:03→23:09)
[2023-01-10] VITALS (29 sets, daily range): BP systolic 98–137; BP diastolic 55–74; TEMP 96.9–98.4; O2SAT 95–100
[2023-01-10] MEDS: LR 1,000 ML IV SCH ×2 (00:46→10:23)
[2023-01-10] MEDS: MORPHINE 4 MG/ML 1ML VIAL IV PRN (02:53)
[2023-01-10] MEDS: BACLOFEN 10 MG TAB PO PRN ×2 (02:53→11:00)
[2023-01-10 05:24] LABS: HEMATOCRIT 23.4 % (36.0-47.0); MEAN CORPUSCULAR HEMOGLOBIN 27.9 pg (27.0-33.0); MEAN CORPUSCULAR HGB CONC 32.5 g/dl (32.0-36.5); PLATELET COUNT, AUTOMATED 114 10^3/uL (150-450); RED BLOOD COUNT 2.72 10^6/uL (4.00-5.40); WHITE BLOOD COUNT 9.3 10^3/uL (4.0-10.0)
[2023-01-10 05:29] LABS: HEMOGLOBIN 7.6 g/dl (12.0-15.5)
[2023-01-10 05:53] LABS: ALBUMIN 1.9 G/DL (3.2-5.2); ALKALINE PHOSPHATASE 80 U/L (46-116); ALT/SGPT 11 U/L (7.0-40); AST/SGOT 14 U/L (<34); BILIRUBIN,TOTAL 0.4 MG/DL (0.3-1.2); BLOOD UREA NITROGEN 11 MG/DL (9-23); CALCIUM LEVEL 7.6 MG/DL (8.3-10.6); CARBON DIOXIDE LEVEL 27 MMOL/L (20-31); CHLORIDE LEVEL 102 MMOL/L (98-107); CREATININE FOR GFR 0.43 MG/DL (0.55-1.30); GLOMERULAR FILTRATION RATE > 60.0 (>45); GLUCOSE, FASTING 123 MG/DL (74-106); POTASSIUM SERUM 3.9 MMOL/L (3.5-5.1); SODIUM LEVEL 136 MMOL/L (136-145); TOTAL PROTEIN 4.4 G/DL (5.7-8.2)
[2023-01-10] MEDS: PERCOCET 5MG/325MG TAB PO PRN ×2 (06:47→23:59)
[2023-01-10] MEDS: METOPROLOL TART 25 MG TABLET PO SCH ×2 (08:25→21:30)
[2023-01-10] MEDS: SENNA 8.6 MG TAB (SENOKOT) PO SCH ×2 (08:25→21:30)
[2023-01-10] MEDS: DOCUSATE SODIUM 100MG CAPSULE PO SCH ×2 (08:26→21:30)
[2023-01-10] MEDS: ACETAMINOPHEN TAB 650MG DOSE (2X325MG) PO PRN (15:56)
[2023-01-10 16:23] LABS: HEMATOCRIT 31.3 % (36.0-47.0)
[2023-01-10] MEDS: GABAPENTIN 300 MG CAP PO SCH (21:30)
[2023-01-10] MEDS: PANTOPRAZOLE 40MG VIAL IV SCH (21:31)
[2023-01-10 21:47] LABS: HEMATOCRIT 32.3 % (36.0-47.0); HEMOGLOBIN 10.5 g/dl (12.0-15.5)
[2023-01-11] VITALS (20 sets, daily range): BP systolic 106–126; BP diastolic 51–75; TEMP 97.5–98.3; O2SAT 96–100
[2023-01-11 05:02] LABS: BASO % 0.5 % (0.0-1.0); EOS # 0.3 10^3/uL (0.0-0.5); EOS % 3.5 % (0.0-3.0); HEMATOCRIT 28.8 % (36.0-47.0); HEMOGLOBIN 9.5 g/dl (12.0-15.5); LYMPH # 1.5 10^3/uL (1.5-5.0); LYMPH % 18.4 % (24.0-44.0); MEAN CORPUSCULAR HEMOGLOBIN 28.8 pg (27.0-33.0); MEAN CORPUSCULAR VOLUME 87.3 fl (80.0-96.0); MONO # 0.9 10^3/uL (0.0-0.8); MONO % 10.7 % (2.0-8.0); NEUTROPHILS # 5.4 10^3/uL (1.5-8.5); NEUTROPHILS % 66.3 % (36.0-66.0); PLATELET COUNT, AUTOMATED 129 10^3/uL (150-450); WHITE BLOOD COUNT 8.2 10^3/uL (4.0-10.0)
[2023-01-11 05:23] LABS: BLOOD UREA NITROGEN 11 MG/DL (9-23); CARBON DIOXIDE LEVEL 29 MMOL/L (20-31); CHLORIDE LEVEL 104 MMOL/L (98-107); CREATININE FOR GFR 0.51 MG/DL (0.55-1.30); GLOMERULAR FILTRATION RATE > 60.0 (>45); GLUCOSE, FASTING 88 MG/DL (74-106); SODIUM LEVEL 140 MMOL/L (136-145)
[2023-01-11] MEDS ORDERED: UNRESOLVED PATIENT OWN MED ORDER XX ONE (05:45)
[2023-01-11] MEDS: DOCUSATE SODIUM 100MG CAPSULE PO SCH ×2 (09:26→20:35)
[2023-01-11] MEDS: SENNA 8.6 MG TAB (SENOKOT) PO SCH ×2 (09:27→20:34)
[2023-01-11] MEDS: METOPROLOL TART 25 MG TABLET PO SCH ×2 (09:28→20:35)
[2023-01-11] MEDS: BACLOFEN 10 MG TAB PO PRN ×2 (09:47→20:36)
[2023-01-11] MEDS ORDERED: KETOROLAC 30 MG/ML 1ML VIAL IV ONE (14:00)
[2023-01-11] MEDS ORDERED: SYMBICORT 160/4.5MCG INHALER 6GM INH SCH (14:00)
[2023-01-11] MEDS ORDERED: ALBUTEROL 90 MCG/ACT 8GM HFA INHALER INH PRN (14:00)
[2023-01-11] MEDS ORDERED: SUMAtriptan SUCCINATE 25 MG TAB PO ONE (15:00)
[2023-01-11] MEDS: FORMOTEROL FUMARATE 20 MCG/2 ML INHALATION SOLUTION (PERFOROMIST) INH SCH ×2 (15:11→19:48)
[2023-01-11] MEDS: TIOTROPIUM INHALER/CAPSULE (SPIRIVA) INH SCH (15:30)
[2023-01-11] MEDS ORDERED: NON-FORMULARY COMPOUNDED MEDICATION SQ ONE ×2 (18:50)
[2023-01-11 20:16] LABS: HEMATOCRIT 30.9 % (36.0-47.0); HEMOGLOBIN 9.8 g/dl (12.0-15.5); MEAN CORPUSCULAR HGB CONC 31.7 g/dl (32.0-36.5); MEAN CORPUSCULAR VOLUME 88.3 fl (80.0-96.0); PLATELET COUNT, AUTOMATED 143 10^3/uL (150-450); WHITE BLOOD COUNT 10.2 10^3/uL (4.0-10.0)
[2023-01-11 20:33] LABS: INR 1.36; PROTHROMBIN TIME 16.4 SECONDS (12.5-14.5)
[2023-01-11 20:34] LABS: PARTIAL THROMBOPLASTIN TIME 26.4 SECONDS (24.8-34.2)
[2023-01-11] MEDS: GABAPENTIN 300 MG CAP PO SCH (20:34)
[2023-01-11] MEDS: ACETAMINOPHEN TAB 650MG DOSE (2X325MG) PO PRN (20:36)
[2023-01-11] MEDS ORDERED: PANTOPRAZOLE 40MG TAB (PROTONIX) PO SCH (21:00)
[2023-01-11] MEDS: HEPARIN DRIP 25,000 UNITS in IV 1 EA IV SCH (21:13)
[2023-01-11] MEDS ORDERED: HEPARIN SOD (PORCINE) 5000UNITS/ML 1ML VIAL/SYRINGE IV PRN (22:00)
[2023-01-12] VITALS (10 sets, daily range): BP systolic 105–134; BP diastolic 54–77; TEMP 97.2–98.6; O2SAT 97–100
[2023-01-12 03:28] LABS: BASO % 0.4 % (0.0-1.0); EOS # 0.3 10^3/uL (0.0-0.5); EOS % 3.6 % (0.0-3.0); HEMATOCRIT 28.4 % (36.0-47.0); HEMOGLOBIN 9.1 g/dl (12.0-15.5); LYMPH # 1.5 10^3/uL (1.5-5.0); LYMPH % 18.7 % (24.0-44.0); MEAN CORPUSCULAR HEMOGLOBIN 28.6 pg (27.0-33.0); MEAN CORPUSCULAR VOLUME 89.3 fl (80.0-96.0); MONO # 0.8 10^3/uL (0.0-0.8); MONO % 9.5 % (2.0-8.0); NEUTROPHILS # 5.4 10^3/uL (1.5-8.5); NEUTROPHILS % 67.3 % (36.0-66.0); PLATELET COUNT, AUTOMATED 142 10^3/uL (150-450); RED BLOOD COUNT 3.18 10^6/uL (4.00-5.40)
[2023-01-12 04:19] LABS: BLOOD UREA NITROGEN 17 MG/DL (9-23); CARBON DIOXIDE LEVEL 31 MMOL/L (20-31); CHLORIDE LEVEL 106 MMOL/L (98-107); CREATININE FOR GFR 0.63 MG/DL (0.55-1.30); GLOMERULAR FILTRATION RATE > 60.0 (>45); GLUCOSE, FASTING 86 MG/DL (74-106); SODIUM LEVEL 142 MMOL/L (136-145)
[2023-01-12] MEDS: PERCOCET 5MG/325MG TAB PO PRN ×2 (07:27→13:47)
[2023-01-12] MEDS: FORMOTEROL FUMARATE 20 MCG/2 ML INHALATION SOLUTION (PERFOROMIST) INH SCH ×3 (07:50→19:24)
[2023-01-12] MEDS: TIOTROPIUM INHALER/CAPSULE (SPIRIVA) INH SCH (07:50)
[2023-01-12] MEDS: BACLOFEN 10 MG TAB PO PRN (07:53)
[2023-01-12] MEDS ORDERED: ALBUTEROL SULFATE 2.5MG/0.5ML INH NEB SOLN NEB ONE (08:10)
[2023-01-12] MEDS ORDERED: LEVALBUTEROL HFA 45MCG/ACT 15GM INHALER INH PRN (10:00)
[2023-01-12] MEDS: SENNA 8.6 MG TAB (SENOKOT) PO SCH ×2 (10:20→20:33)
[2023-01-12] MEDS: METOPROLOL TART 25 MG TABLET PO SCH ×2 (10:21→20:33)
[2023-01-12] MEDS: PANTOPRAZOLE 40MG TAB (PROTONIX) PO SCH ×2 (10:21→20:32)
[2023-01-12] MEDS: DOCUSATE SODIUM 100MG CAPSULE PO SCH ×2 (10:21→20:32)
[2023-01-12] MEDS ORDERED: FUROSEMIDE 40MG/4ML VIAL IV ONE (10:30)
[2023-01-12] MEDS: aMILoride 5 MG TAB PO SCH (10:42)
[2023-01-12] MEDS: HEPARIN DRIP 25,000 UNITS in IV 1 EA IV SCH (12:20)
[2023-01-12] MEDS ORDERED: FUROSEMIDE 40MG/4ML VIAL IV SCH (17:00)
[2023-01-12 17:07] LABS: HEMATOCRIT 31.3 % (36.0-47.0); HEMOGLOBIN 9.8 g/dl (12.0-15.5); MEAN CORPUSCULAR HEMOGLOBIN 28.2 pg (27.0-33.0); MEAN CORPUSCULAR HGB CONC 31.3 g/dl (32.0-36.5); MEAN CORPUSCULAR VOLUME 90.2 fl (80.0-96.0); PLATELET COUNT, AUTOMATED 175 10^3/uL (150-450); RED BLOOD COUNT 3.47 10^6/uL (4.00-5.40); WHITE BLOOD COUNT 9.8 10^3/uL (4.0-10.0)
[2023-01-12] MEDS: BACLOFEN 10 MG TAB PO SCH ×2 (17:16→20:32)
[2023-01-12 20:05] LABS: HEMATOCRIT 31.7 % (36.0-47.0); HEMOGLOBIN 10.1 g/dl (12.0-15.5); MEAN CORPUSCULAR HEMOGLOBIN 28.8 pg (27.0-33.0); MEAN CORPUSCULAR HGB CONC 31.9 g/dl (32.0-36.5); MEAN CORPUSCULAR VOLUME 90.3 fl (80.0-96.0); PLATELET COUNT, AUTOMATED 196 10^3/uL (150-450); RED BLOOD COUNT 3.51 10^6/uL (4.00-5.40); WHITE BLOOD COUNT 9.9 10^3/uL (4.0-10.0)
[2023-01-12] MEDS: GABAPENTIN 300 MG CAP PO SCH (20:32)
[2023-01-13] MEDS: LEVALBUTEROL 1.25MG 0.5ML CONCENTRATE NEB INH PRN ×2 (01:25→23:31)
[2023-01-13] MEDS: HEPARIN DRIP 25,000 UNITS in IV 1 EA IV SCH ×2 (02:24→16:48)
[2023-01-13] MEDS: PERCOCET 5MG/325MG TAB PO PRN ×2 (02:29→09:00)
[2023-01-13 04:27] VITALS: BP 98/51; TEMP 97.4; O2SAT 100
[2023-01-13 06:32] LABS: BASO % 0.3 % (0.0-1.0); EOS # 0.3 10^3/uL (0.0-0.5); EOS % 3.4 % (0.0-3.0); HEMATOCRIT 29.5 % (36.0-47.0); HEMOGLOBIN 9.3 g/dl (12.0-15.5); LYMPH # 1.2 10^3/uL (1.5-5.0); LYMPH % 14.3 % (24.0-44.0); MEAN CORPUSCULAR HEMOGLOBIN 28.4 pg (27.0-33.0); MEAN CORPUSCULAR HGB CONC 31.5 g/dl (32.0-36.5); MEAN CORPUSCULAR VOLUME 90.2 fl (80.0-96.0); MONO # 0.9 10^3/uL (0.0-0.8); MONO % 10.1 % (2.0-8.0); NEUTROPHILS # 6.2 10^3/uL (1.5-8.5); NEUTROPHILS % 71.4 % (36.0-66.0); PLATELET COUNT, AUTOMATED 198 10^3/uL (150-450); RED BLOOD COUNT 3.27 10^6/uL (4.00-5.40); WHITE BLOOD COUNT 8.6 10^3/uL (4.0-10.0)
[2023-01-13 06:56] LABS: BLOOD UREA NITROGEN 13 MG/DL (9-23); CALCIUM LEVEL 8.5 MG/DL (8.3-10.6); CARBON DIOXIDE LEVEL 30 MMOL/L (20-31); CHLORIDE LEVEL 104 MMOL/L (98-107); CREATININE FOR GFR 0.57 MG/DL (0.55-1.30); GLOMERULAR FILTRATION RATE > 60.0 (>45); GLUCOSE, FASTING 89 MG/DL (74-106); POTASSIUM SERUM 4.3 MMOL/L (3.5-5.1); SODIUM LEVEL 140 MMOL/L (136-145)
[2023-01-13 07:44] VITALS: BP 107/56; TEMP 98.3; O2SAT 97
[2023-01-13] MEDS: TIOTROPIUM INHALER/CAPSULE (SPIRIVA) INH SCH (08:30)
[2023-01-13] MEDS: FORMOTEROL FUMARATE 20 MCG/2 ML INHALATION SOLUTION (PERFOROMIST) INH SCH ×2 (08:30→19:07)
[2023-01-13] MEDS: PANTOPRAZOLE 40MG TAB (PROTONIX) PO SCH ×2 (08:58→21:01)
[2023-01-13] MEDS: BACLOFEN 10 MG TAB PO SCH ×3 (08:58→21:01)
[2023-01-13] MEDS: aMILoride 5 MG TAB PO SCH (08:58)
[2023-01-13] MEDS: METOPROLOL TART 25 MG TABLET PO SCH ×3 (08:59→21:01)
[2023-01-13] MEDS: DOCUSATE SODIUM 100MG CAPSULE PO SCH ×3 (09:00→21:00)
[2023-01-13] MEDS: SENNA 8.6 MG TAB (SENOKOT) PO SCH ×2 (09:00→09:01)
[2023-01-13] MEDS ORDERED: KETOROLAC 30 MG/ML 1ML VIAL IV ONE (11:15)
[2023-01-13 11:51] VITALS: BP 111/57; TEMP 97.3; O2SAT 98
[2023-01-13 12:00] VITALS: O2SAT 97
[2023-01-13] MEDS ORDERED: BUMETANIDE 1MG/4ML VIAL IV ONE (13:00)
[2023-01-13 15:51] VITALS: BP 117/59; TEMP 98; O2SAT 98
[2023-01-13] MEDS: ACETAMINOPHEN 500 MG TAB PO PRN (18:21)
[2023-01-13 20:54] VITALS: BP_SYST 104; BP_SYST 122; BP_DIAS 58; BP_DIAS 68; TEMP 98.2; O2SAT 94
[2023-01-13] MEDS: GABAPENTIN 300 MG CAP PO SCH (21:01)
[2023-01-14] VITALS: BP 116/61; TEMP 97; O2SAT 96
[2023-01-14 04:00] VITALS: BP 121/68; TEMP 97.6; O2SAT 97
[2023-01-14] MEDS: oxyCODONE 5MG TAB PO PRN ×2 (04:53→18:29)
[2023-01-14] MEDS: HEPARIN DRIP 25,000 UNITS in IV 1 EA IV SCH ×2 (05:17→18:37)
[2023-01-14 06:36] LABS: BASO % 0.4 % (0.0-1.0); EOS # 0.2 10^3/uL (0.0-0.5); EOS % 3.3 % (0.0-3.0); HEMATOCRIT 30.4 % (36.0-47.0); HEMOGLOBIN 9.5 g/dl (12.0-15.5); LYMPH % 13.6 % (24.0-44.0); MEAN CORPUSCULAR HEMOGLOBIN 27.9 pg (27.0-33.0); MEAN CORPUSCULAR HGB CONC 31.3 g/dl (32.0-36.5); MEAN CORPUSCULAR VOLUME 89.4 fl (80.0-96.0); MONO # 0.8 10^3/uL (0.0-0.8); MONO % 10.9 % (2.0-8.0); NEUTROPHILS # 5.1 10^3/uL (1.5-8.5); NEUTROPHILS % 71.2 % (36.0-66.0); PLATELET COUNT, AUTOMATED 229 10^3/uL (150-450); WHITE BLOOD COUNT 7.2 10^3/uL (4.0-10.0)
[2023-01-14 06:51] LABS: INR 1.03; PROTHROMBIN TIME 13.2 SECONDS (12.5-14.5)
[2023-01-14 06:54] LABS: PARTIAL THROMBOPLASTIN TIME 93.9 SECONDS (24.8-34.2)
[2023-01-14 07:17] LABS: BLOOD UREA NITROGEN 15 MG/DL (9-23); CALCIUM LEVEL 8.6 MG/DL (8.3-10.6); CARBON DIOXIDE LEVEL 29 MMOL/L (20-31); CHLORIDE LEVEL 106 MMOL/L (98-107); GLOMERULAR FILTRATION RATE > 60.0 (>45); GLUCOSE, FASTING 97 MG/DL (74-106); POTASSIUM SERUM 4.5 MMOL/L (3.5-5.1); SODIUM LEVEL 142 MMOL/L (136-145)
[2023-01-14] MEDS: FORMOTEROL FUMARATE 20 MCG/2 ML INHALATION SOLUTION (PERFOROMIST) INH SCH ×2 (07:30→19:37)
[2023-01-14] MEDS: TIOTROPIUM INHALER/CAPSULE (SPIRIVA) INH SCH (07:31)
[2023-01-14 07:42] VITALS: BP 121/57; TEMP 97.4; O2SAT 98
[2023-01-14] MEDS: aMILoride 5 MG TAB PO SCH (10:09)
[2023-01-14] MEDS: METOPROLOL TART 25 MG TABLET PO SCH ×2 (10:10→21:05)
[2023-01-14] MEDS: ACETAMINOPHEN 500 MG TAB PO PRN ×2 (10:10→16:31)
[2023-01-14] MEDS: PANTOPRAZOLE 40MG TAB (PROTONIX) PO SCH ×2 (10:10→21:06)
[2023-01-14] MEDS: BACLOFEN 10 MG TAB PO SCH ×3 (10:10→21:06)
[2023-01-14] MEDS: DOCUSATE SODIUM 100MG CAPSULE PO SCH ×2 (10:10→21:06)
[2023-01-14] MEDS: MORPHINE 4 MG/ML 1ML VIAL IV PRN ×2 (10:11→23:35)
[2023-01-14 11:43] VITALS: BP 104/58; TEMP 97.8; O2SAT 94
[2023-01-14 15:45] VITALS: BP 104/57; TEMP 96.9; O2SAT 96
[2023-01-14 20:35] VITALS: BP 132/60; TEMP 97.8; O2SAT 91
[2023-01-14] MEDS: GABAPENTIN 300 MG CAP PO SCH (21:06)
[2023-01-14] MEDS: LEVALBUTEROL 1.25MG 0.5ML CONCENTRATE NEB INH PRN (23:41)
[2023-01-15] VITALS (8 sets, daily range): BP systolic 99–130; BP diastolic 52–83; TEMP 97–98.3; O2SAT 93–98
[2023-01-15] MEDS: carisoprodoL 350 MG TAB PO PRN ×2 (00:24→11:33)
[2023-01-15] MEDS: HEPARIN DRIP 25,000 UNITS in IV 1 EA IV SCH (04:20)
[2023-01-15] MEDS: ACETAMINOPHEN 500 MG TAB PO PRN ×3 (04:23→16:06)
[2023-01-15 07:02] LABS: BASO % 0.5 % (0.0-1.0); EOS # 0.2 10^3/uL (0.0-0.5); EOS % 3.5 % (0.0-3.0); HEMATOCRIT 30.8 % (36.0-47.0); HEMOGLOBIN 9.5 g/dl (12.0-15.5); LYMPH # 0.9 10^3/uL (1.5-5.0); LYMPH % 13.1 % (24.0-44.0); MEAN CORPUSCULAR HGB CONC 30.8 g/dl (32.0-36.5); MEAN CORPUSCULAR VOLUME 90.9 fl (80.0-96.0); MONO # 0.7 10^3/uL (0.0-0.8); MONO % 10.5 % (2.0-8.0); NEUTROPHILS # 4.8 10^3/uL (1.5-8.5); NEUTROPHILS % 72.1 % (36.0-66.0); PLATELET COUNT, AUTOMATED 241 10^3/uL (150-450); RED BLOOD COUNT 3.39 10^6/uL (4.00-5.40); WHITE BLOOD COUNT 6.6 10^3/uL (4.0-10.0)
[2023-01-15 07:18] LABS: INR 1.04; PROTHROMBIN TIME 13.3 SECONDS (12.5-14.5)
[2023-01-15 07:21] LABS: PARTIAL THROMBOPLASTIN TIME 92.7 SECONDS (24.8-34.2)
[2023-01-15 07:33] LABS: BLOOD UREA NITROGEN 20 MG/DL (9-23); CALCIUM LEVEL 8.8 MG/DL (8.3-10.6); CARBON DIOXIDE LEVEL 27 MMOL/L (20-31); CHLORIDE LEVEL 105 MMOL/L (98-107); CREATININE FOR GFR 0.63 MG/DL (0.55-1.30); GLOMERULAR FILTRATION RATE > 60.0 (>45); GLUCOSE, FASTING 95 MG/DL (74-106); POTASSIUM SERUM 4.8 MMOL/L (3.5-5.1); SODIUM LEVEL 140 MMOL/L (136-145)
[2023-01-15] MEDS: TIOTROPIUM INHALER/CAPSULE (SPIRIVA) INH SCH (07:54)
[2023-01-15] MEDS: FORMOTEROL FUMARATE 20 MCG/2 ML INHALATION SOLUTION (PERFOROMIST) INH SCH ×2 (07:54→19:31)
[2023-01-15] MEDS: METOPROLOL TART 25 MG TABLET PO SCH ×3 (08:55→20:25)
[2023-01-15] MEDS: aMILoride 5 MG TAB PO SCH (10:12)
[2023-01-15] MEDS: BACLOFEN 10 MG TAB PO SCH ×3 (10:13→20:22)
[2023-01-15] MEDS: DOCUSATE SODIUM 100MG CAPSULE PO SCH ×2 (10:13→20:22)
[2023-01-15] MEDS: PANTOPRAZOLE 40MG TAB (PROTONIX) PO SCH ×2 (10:13→20:22)
[2023-01-15] MEDS: BUMETANIDE 1MG/4ML VIAL IV SCH ×2 (10:14→20:22)
[2023-01-15] MEDS: APIXABAN 5 MG TAB (ELIQUIS) PO SCH ×2 (11:33→20:22)
[2023-01-15] MEDS ORDERED: BUMETANIDE 1MG/4ML VIAL IV SCH (12:00)
[2023-01-15] MEDS: MORPHINE 4 MG/ML 1ML VIAL IV PRN ×2 (14:32→21:50)
[2023-01-15] MEDS: oxyCODONE 5MG TAB PO PRN (18:05)
[2023-01-15] MEDS: GABAPENTIN 300 MG CAP PO SCH (20:22)
[2023-01-16] MEDS: carisoprodoL 350 MG TAB PO PRN (00:09)
[2023-01-16 05:35] VITALS: BP 128/87; TEMP 98.8; O2SAT 94
[2023-01-16] MEDS: MORPHINE 4 MG/ML 1ML VIAL IV PRN ×2 (06:02→22:45)
[2023-01-16 06:47] LABS: BASO % 0.3 % (0.0-1.0); EOS # 0.2 10^3/uL (0.0-0.5); EOS % 2.8 % (0.0-3.0); HEMATOCRIT 33.2 % (36.0-47.0); HEMOGLOBIN 10.4 g/dl (12.0-15.5); LYMPH # 0.9 10^3/uL (1.5-5.0); LYMPH % 16.3 % (24.0-44.0); MEAN CORPUSCULAR HGB CONC 31.3 g/dl (32.0-36.5); MEAN CORPUSCULAR VOLUME 89.2 fl (80.0-96.0); MONO # 0.6 10^3/uL (0.0-0.8); MONO % 10.8 % (2.0-8.0); NEUTROPHILS % 69.5 % (36.0-66.0); PLATELET COUNT, AUTOMATED 262 10^3/uL (150-450); RED BLOOD COUNT 3.72 10^6/uL (4.00-5.40); WHITE BLOOD COUNT 5.8 10^3/uL (4.0-10.0)
[2023-01-16 07:08] LABS: BLOOD UREA NITROGEN 19 MG/DL (9-23); CALCIUM LEVEL 8.7 MG/DL (8.3-10.6); CARBON DIOXIDE LEVEL 27 MMOL/L (20-31); CHLORIDE LEVEL 101 MMOL/L (98-107); CREATININE FOR GFR 0.64 MG/DL (0.55-1.30); GLOMERULAR FILTRATION RATE > 60.0 (>45); GLUCOSE, FASTING 100 MG/DL (74-106); POTASSIUM SERUM 4.2 MMOL/L (3.5-5.1); SODIUM LEVEL 138 MMOL/L (136-145)
[2023-01-16] MEDS: TIOTROPIUM INHALER/CAPSULE (SPIRIVA) INH SCH (07:32)
[2023-01-16] MEDS: FORMOTEROL FUMARATE 20 MCG/2 ML INHALATION SOLUTION (PERFOROMIST) INH SCH ×2 (07:32→19:41)
[2023-01-16] MEDS: BACLOFEN 10 MG TAB PO SCH ×3 (08:07→21:02)
[2023-01-16] MEDS: APIXABAN 5 MG TAB (ELIQUIS) PO SCH ×2 (08:07→21:02)
[2023-01-16] MEDS: PANTOPRAZOLE 40MG TAB (PROTONIX) PO SCH ×2 (08:07→21:03)
[2023-01-16] MEDS: aMILoride 5 MG TAB PO SCH (08:07)
[2023-01-16] MEDS: DOCUSATE SODIUM 100MG CAPSULE PO SCH ×2 (08:08→21:03)
[2023-01-16] MEDS: BUMETANIDE 1MG/4ML VIAL IV SCH ×2 (08:08→21:02)
[2023-01-16] MEDS: METOPROLOL TART 25 MG TABLET PO SCH ×2 (08:08→21:05)
[2023-01-16] MEDS: oxyCODONE 5MG TAB PO PRN ×2 (08:18→16:48)
[2023-01-16] MEDS ORDERED: KETOROLAC 30 MG/ML 1ML VIAL IV PRN (10:00)
[2023-01-16 14:00] VITALS: BP 121/69; TEMP 97.9; O2SAT 95
[2023-01-16 20:43] VITALS: BP 141/88; TEMP 98.1; O2SAT 97
[2023-01-16] MEDS: GABAPENTIN 300 MG CAP PO SCH (21:03)
[2023-01-17] MEDS: MORPHINE 4 MG/ML 1ML VIAL IV PRN (04:10)
[2023-01-17 05:02] VITALS: BP 134/78; TEMP 98.1; O2SAT 97
[2023-01-17] MEDS: ACETAMINOPHEN 500 MG TAB PO PRN (06:15)
[2023-01-17 07:01] LABS: BASO % 0.4 % (0.0-1.0); EOS # 0.2 10^3/uL (0.0-0.5); EOS % 2.6 % (0.0-3.0); HEMATOCRIT 33.1 % (36.0-47.0); HEMOGLOBIN 10.5 g/dl (12.0-15.5); LYMPH # 1.1 10^3/uL (1.5-5.0); MEAN CORPUSCULAR HEMOGLOBIN 28.4 pg (27.0-33.0); MEAN CORPUSCULAR HGB CONC 31.7 g/dl (32.0-36.5); MEAN CORPUSCULAR VOLUME 89.5 fl (80.0-96.0); MONO # 0.8 10^3/uL (0.0-0.8); NEUTROPHILS # 4.8 10^3/uL (1.5-8.5); NEUTROPHILS % 68.6 % (36.0-66.0); PLATELET COUNT, AUTOMATED 307 10^3/uL (150-450)
[2023-01-17 07:36] LABS: BLOOD UREA NITROGEN 29 MG/DL (9-23); CALCIUM LEVEL 8.8 MG/DL (8.3-10.6); CARBON DIOXIDE LEVEL 30 MMOL/L (20-31); CHLORIDE LEVEL 99 MMOL/L (98-107); GLOMERULAR FILTRATION RATE > 60.0 (>45); GLUCOSE, FASTING 96 MG/DL (74-106); POTASSIUM SERUM 4.3 MMOL/L (3.5-5.1); SODIUM LEVEL 139 MMOL/L (136-145)
[2023-01-17] MEDS: FORMOTEROL FUMARATE 20 MCG/2 ML INHALATION SOLUTION (PERFOROMIST) INH SCH ×2 (07:53→19:41)
[2023-01-17] MEDS: TIOTROPIUM INHALER/CAPSULE (SPIRIVA) INH SCH (07:53)
[2023-01-17] MEDS: DOCUSATE SODIUM 100MG CAPSULE PO SCH ×2 (10:00→20:10)
[2023-01-17] MEDS: APIXABAN 5 MG TAB (ELIQUIS) PO SCH ×2 (10:01→20:09)
[2023-01-17] MEDS: BACLOFEN 10 MG TAB PO SCH ×3 (10:01→20:10)
[2023-01-17] MEDS: aMILoride 5 MG TAB PO SCH (10:04)
[2023-01-17] MEDS: METOPROLOL TART 25 MG TABLET PO SCH ×2 (10:04→20:08)
[2023-01-17] MEDS: BUMETANIDE 1MG/4ML VIAL IV SCH (10:05)
[2023-01-17] MEDS: PANTOPRAZOLE 40MG TAB (PROTONIX) PO SCH ×2 (10:05→20:10)
[2023-01-17] MEDS: oxyCODONE 5MG TAB PO PRN ×2 (10:06→16:28)
[2023-01-17] MEDS: carisoprodoL 350 MG TAB PO PRN ×2 (13:50→23:50)
[2023-01-17 14:00] VITALS: BP 120/60; TEMP 97.3; O2SAT 96
[2023-01-17] MEDS ORDERED: ACETAMINOPHEN TAB 650MG DOSE (2X325MG) PO PRN (17:05)
[2023-01-17] MEDS ORDERED: PILL CUTTER 1 EACH XX PRN (17:20)
[2023-01-17 20:00] VITALS: BP 121/86; TEMP 97.9; O2SAT 96
[2023-01-17] MEDS: GABAPENTIN 300 MG CAP PO SCH (20:08)
[2023-01-17] MEDS: BUMETANIDE 1 MG TAB PO SCH (20:08)
[2023-01-17] MEDS: ACETAMINOPHEN TAB 650MG DOSE (2X325MG) PO SCH (20:09)
[2023-01-18] MEDS: oxyCODONE 5MG TAB PO PRN ×4 (02:03→20:50)
[2023-01-18 05:25] VITALS: BP 116/78; TEMP 97.5; O2SAT 97
[2023-01-18 07:15] LABS: HEMATOCRIT 33.9 % (36.0-47.0); HEMOGLOBIN 10.4 g/dl (12.0-15.5); MEAN CORPUSCULAR HEMOGLOBIN 27.4 pg (27.0-33.0); MEAN CORPUSCULAR HGB CONC 30.7 g/dl (32.0-36.5); MEAN CORPUSCULAR VOLUME 89.4 fl (80.0-96.0); PLATELET COUNT, AUTOMATED 337 10^3/uL (150-450); RED BLOOD COUNT 3.79 10^6/uL (4.00-5.40); WHITE BLOOD COUNT 5.8 10^3/uL (4.0-10.0)
[2023-01-18] MEDS: FORMOTEROL FUMARATE 20 MCG/2 ML INHALATION SOLUTION (PERFOROMIST) INH SCH ×2 (07:39→20:35)
[2023-01-18] MEDS: TIOTROPIUM INHALER/CAPSULE (SPIRIVA) INH SCH (07:39)
[2023-01-18 07:41] LABS: ALBUMIN 2.8 G/DL (3.2-5.2); ALKALINE PHOSPHATASE 172 U/L (46-116); ALT/SGPT 38 U/L (7.0-40); AST/SGOT 32 U/L (<34); BILIRUBIN,TOTAL 0.5 MG/DL (0.3-1.2); BLOOD UREA NITROGEN 29 MG/DL (9-23); CALCIUM LEVEL 9.3 MG/DL (8.3-10.6); CARBON DIOXIDE LEVEL 32 MMOL/L (20-31); CHLORIDE LEVEL 100 MMOL/L (98-107); CREATININE FOR GFR 0.71 MG/DL (0.55-1.30); GLOMERULAR FILTRATION RATE > 60.0 (>45); GLUCOSE, FASTING 88 MG/DL (74-106); POTASSIUM SERUM 4.3 MMOL/L (3.5-5.1); SODIUM LEVEL 137 MMOL/L (136-145); TOTAL PROTEIN 6.2 G/DL (5.7-8.2)
[2023-01-18] MEDS: APIXABAN 5 MG TAB (ELIQUIS) PO SCH ×2 (10:25→20:41)
[2023-01-18] MEDS: DOCUSATE SODIUM 100MG CAPSULE PO SCH ×2 (10:25→20:43)
[2023-01-18] MEDS: BUMETANIDE 1 MG TAB PO SCH ×2 (10:25→20:43)
[2023-01-18] MEDS: BACLOFEN 10 MG TAB PO SCH ×3 (10:25→20:40)
[2023-01-18] MEDS: aMILoride 5 MG TAB PO SCH (10:26)
[2023-01-18] MEDS: ACETAMINOPHEN TAB 650MG DOSE (2X325MG) PO SCH ×3 (10:26→20:42)
[2023-01-18] MEDS: PANTOPRAZOLE 40MG TAB (PROTONIX) PO SCH ×2 (10:26→20:40)
[2023-01-18] MEDS: METOPROLOL TART 25 MG TABLET PO SCH ×2 (10:31→20:43)
[2023-01-18 14:00] VITALS: BP 132/87; TEMP 97.7; O2SAT 96
[2023-01-18] MEDS: GABAPENTIN 300 MG CAP PO SCH (20:41)
[2023-01-18 20:44] VITALS: BP 126/65; TEMP 97.5
[2023-01-18] MEDS: carisoprodoL 350 MG TAB PO PRN (20:50)
[2023-01-19 04:40] VITALS: BP 127/65; TEMP 97.7; O2SAT 96
[2023-01-19 06:17] LABS: HEMATOCRIT 32.7 % (36.0-47.0); HEMOGLOBIN 10.4 g/dl (12.0-15.5); MEAN CORPUSCULAR HEMOGLOBIN 28.4 pg (27.0-33.0); MEAN CORPUSCULAR HGB CONC 31.8 g/dl (32.0-36.5); MEAN CORPUSCULAR VOLUME 89.3 fl (80.0-96.0); PLATELET COUNT, AUTOMATED 324 10^3/uL (150-450); RED BLOOD COUNT 3.66 10^6/uL (4.00-5.40); WHITE BLOOD COUNT 4.9 10^3/uL (4.0-10.0)
[2023-01-19 06:53] LABS: ALBUMIN 2.8 G/DL (3.2-5.2); ALKALINE PHOSPHATASE 176 U/L (46-116); ALT/SGPT 29 U/L (7.0-40); AST/SGOT 20 U/L (<34); BILIRUBIN,TOTAL 0.4 MG/DL (0.3-1.2); BLOOD UREA NITROGEN 30 MG/DL (9-23); CALCIUM LEVEL 8.7 MG/DL (8.3-10.6); CARBON DIOXIDE LEVEL 27 MMOL/L (20-31); CHLORIDE LEVEL 103 MMOL/L (98-107); CREATININE FOR GFR 0.63 MG/DL (0.55-1.30); GLOMERULAR FILTRATION RATE > 60.0 (>45); GLUCOSE, FASTING 93 MG/DL (74-106); POTASSIUM SERUM 3.7 MMOL/L (3.5-5.1); SODIUM LEVEL 137 MMOL/L (136-145); TOTAL PROTEIN 6.1 G/DL (5.7-8.2)
[2023-01-19] MEDS: FORMOTEROL FUMARATE 20 MCG/2 ML INHALATION SOLUTION (PERFOROMIST) INH SCH ×2 (08:04→19:58)
[2023-01-19] MEDS: TIOTROPIUM INHALER/CAPSULE (SPIRIVA) INH SCH (08:04)
[2023-01-19] MEDS: METOPROLOL TART 25 MG TABLET PO SCH ×2 (08:30→21:26)
[2023-01-19] MEDS: aMILoride 5 MG TAB PO SCH (08:30)
[2023-01-19] MEDS: ACETAMINOPHEN TAB 650MG DOSE (2X325MG) PO SCH ×3 (08:31→21:27)
[2023-01-19] MEDS: BACLOFEN 10 MG TAB PO SCH ×3 (08:31→21:27)
[2023-01-19] MEDS: DOCUSATE SODIUM 100MG CAPSULE PO SCH ×2 (08:32→21:27)
[2023-01-19] MEDS: PANTOPRAZOLE 40MG TAB (PROTONIX) PO SCH ×2 (08:32→21:26)
[2023-01-19] MEDS: APIXABAN 5 MG TAB (ELIQUIS) PO SCH ×2 (08:32→21:25)
[2023-01-19] MEDS: BUMETANIDE 1 MG TAB PO SCH ×2 (08:32→21:26)
[2023-01-19] MEDS: oxyCODONE 5MG TAB PO PRN ×2 (08:35→13:56)
[2023-01-19 14:00] VITALS: BP 139/70; TEMP 98.1; O2SAT 100
[2023-01-19] MEDS: carisoprodoL 350 MG TAB PO PRN (14:10)
[2023-01-19 21:10] VITALS: BP 104/58; TEMP 97.5; O2SAT 99
[2023-01-19] MEDS: GABAPENTIN 300 MG CAP PO SCH (21:27)
[2023-01-20] MEDS: carisoprodoL 350 MG TAB PO PRN (01:34)
[2023-01-20] MEDS: oxyCODONE 5MG TAB PO PRN ×4 (04:44→22:18)
[2023-01-20 07:02] VITALS: BP 113/65; TEMP 97.9; O2SAT 98
[2023-01-20 07:32] LABS: HEMATOCRIT 32.9 % (36.0-47.0); HEMOGLOBIN 10.1 g/dl (12.0-15.5); MEAN CORPUSCULAR HEMOGLOBIN 27.7 pg (27.0-33.0); MEAN CORPUSCULAR HGB CONC 30.7 g/dl (32.0-36.5); MEAN CORPUSCULAR VOLUME 90.1 fl (80.0-96.0); PLATELET COUNT, AUTOMATED 360 10^3/uL (150-450); RED BLOOD COUNT 3.65 10^6/uL (4.00-5.40); WHITE BLOOD COUNT 5.2 10^3/uL (4.0-10.0)
[2023-01-20] MEDS: TIOTROPIUM INHALER/CAPSULE (SPIRIVA) INH SCH (07:46)
[2023-01-20] MEDS: FORMOTEROL FUMARATE 20 MCG/2 ML INHALATION SOLUTION (PERFOROMIST) INH SCH ×2 (07:46→20:05)
[2023-01-20 08:01] LABS: ALBUMIN 2.8 G/DL (3.2-5.2); ALKALINE PHOSPHATASE 183 U/L (46-116); ALT/SGPT 23 U/L (7.0-40); AST/SGOT 14 U/L (<34); BILIRUBIN,TOTAL 0.4 MG/DL (0.3-1.2); BLOOD UREA NITROGEN 23 MG/DL (9-23); CALCIUM LEVEL 8.9 MG/DL (8.3-10.6); CARBON DIOXIDE LEVEL 31 MMOL/L (20-31); CHLORIDE LEVEL 100 MMOL/L (98-107); CREATININE FOR GFR 0.58 MG/DL (0.55-1.30); GLOMERULAR FILTRATION RATE > 60.0 (>45); GLUCOSE, FASTING 91 MG/DL (74-106); POTASSIUM SERUM 3.4 MMOL/L (3.5-5.1); SODIUM LEVEL 138 MMOL/L (136-145); TOTAL PROTEIN 6.4 G/DL (5.7-8.2)
[2023-01-20] MEDS: APIXABAN 5 MG TAB (ELIQUIS) PO SCH ×2 (10:01→20:29)
[2023-01-20] MEDS: BUMETANIDE 1 MG TAB PO SCH ×2 (10:01→20:29)
[2023-01-20] MEDS: DOCUSATE SODIUM 100MG CAPSULE PO SCH ×2 (10:02→20:29)
[2023-01-20] MEDS: METOPROLOL TART 25 MG TABLET PO SCH ×2 (10:02→20:31)
[2023-01-20] MEDS: ACETAMINOPHEN TAB 650MG DOSE (2X325MG) PO SCH ×3 (10:02→20:32)
[2023-01-20] MEDS: aMILoride 5 MG TAB PO SCH (10:03)
[2023-01-20] MEDS: BACLOFEN 10 MG TAB PO SCH ×3 (10:03→20:29)
[2023-01-20] MEDS: PANTOPRAZOLE 40MG TAB (PROTONIX) PO SCH ×2 (10:03→20:29)
[2023-01-20] MEDS: GABAPENTIN 300 MG CAP PO SCH (20:29)
[2023-01-21] MEDS: oxyCODONE 5MG TAB PO PRN ×4 (03:27→21:02)
[2023-01-21 06:35] VITALS: BP 117/66; TEMP 97.7; O2SAT 98
[2023-01-21 06:56] LABS: HEMATOCRIT 31.7 % (36.0-47.0); MEAN CORPUSCULAR HEMOGLOBIN 28.2 pg (27.0-33.0); MEAN CORPUSCULAR HGB CONC 31.5 g/dl (32.0-36.5); MEAN CORPUSCULAR VOLUME 89.5 fl (80.0-96.0); PLATELET COUNT, AUTOMATED 354 10^3/uL (150-450); RED BLOOD COUNT 3.54 10^6/uL (4.00-5.40); WHITE BLOOD COUNT 5.6 10^3/uL (4.0-10.0)
[2023-01-21] MEDS: TIOTROPIUM INHALER/CAPSULE (SPIRIVA) INH SCH (07:16)
[2023-01-21] MEDS: FORMOTEROL FUMARATE 20 MCG/2 ML INHALATION SOLUTION (PERFOROMIST) INH SCH ×2 (07:16→19:48)
[2023-01-21 07:25] LABS: ALBUMIN 2.8 G/DL (3.2-5.2); ALKALINE PHOSPHATASE 187 U/L (46-116); ALT/SGPT 20 U/L (7.0-40); AST/SGOT 10 U/L (<34); BILIRUBIN,TOTAL 0.4 MG/DL (0.3-1.2); BLOOD UREA NITROGEN 23 MG/DL (9-23); CALCIUM LEVEL 9.1 MG/DL (8.3-10.6); CARBON DIOXIDE LEVEL 30 MMOL/L (20-31); CHLORIDE LEVEL 101 MMOL/L (98-107); CREATININE FOR GFR 0.59 MG/DL (0.55-1.30); GLOMERULAR FILTRATION RATE > 60.0 (>45); GLUCOSE, FASTING 88 MG/DL (74-106); POTASSIUM SERUM 3.4 MMOL/L (3.5-5.1); SODIUM LEVEL 138 MMOL/L (136-145); TOTAL PROTEIN 6.3 G/DL (5.7-8.2)
[2023-01-21] MEDS: TUMERIC CURCUMIN PO SCH (09:00)
[2023-01-21 10:32] VITALS: BP 131/77
[2023-01-21] MEDS: PANTOPRAZOLE 40MG TAB (PROTONIX) PO SCH ×2 (10:43→21:01)
[2023-01-21] MEDS: METOPROLOL TART 25 MG TABLET PO SCH ×2 (10:44→21:00)
[2023-01-21] MEDS: BUMETANIDE 1 MG TAB PO SCH ×2 (10:44→21:00)
[2023-01-21] MEDS: BACLOFEN 10 MG TAB PO SCH ×3 (10:46→21:01)
[2023-01-21] MEDS: DOCUSATE SODIUM 100MG CAPSULE PO SCH ×2 (10:46→21:01)
[2023-01-21] MEDS: ACETAMINOPHEN TAB 650MG DOSE (2X325MG) PO SCH ×3 (10:46→21:01)
[2023-01-21] MEDS: APIXABAN 5 MG TAB (ELIQUIS) PO SCH ×2 (10:46→21:01)
[2023-01-21] MEDS: aMILoride 5 MG TAB PO SCH (10:57)
[2023-01-21] MEDS: HORSE CHESTNUT PO SCH (15:40)
[2023-01-21] MEDS: GABAPENTIN 300 MG CAP PO SCH (21:01)
[2023-01-22] MEDS: oxyCODONE 5MG TAB PO PRN ×4 (03:28→20:34)
[2023-01-22 05:43] VITALS: BP 122/67; TEMP 98.1; O2SAT 98
[2023-01-22 07:33] LABS: HEMATOCRIT 34.4 % (36.0-47.0); HEMOGLOBIN 10.6 g/dl (12.0-15.5); MEAN CORPUSCULAR HEMOGLOBIN 27.8 pg (27.0-33.0); MEAN CORPUSCULAR HGB CONC 30.8 g/dl (32.0-36.5); MEAN CORPUSCULAR VOLUME 90.3 fl (80.0-96.0); PLATELET COUNT, AUTOMATED 359 10^3/uL (150-450); RED BLOOD COUNT 3.81 10^6/uL (4.00-5.40); WHITE BLOOD COUNT 4.4 10^3/uL (4.0-10.0)
[2023-01-22] MEDS: TIOTROPIUM INHALER/CAPSULE (SPIRIVA) INH SCH (07:54)
[2023-01-22] MEDS: FORMOTEROL FUMARATE 20 MCG/2 ML INHALATION SOLUTION (PERFOROMIST) INH SCH ×2 (07:54→19:22)
[2023-01-22 08:04] LABS: ALBUMIN 2.8 G/DL (3.2-5.2); ALKALINE PHOSPHATASE 195 U/L (46-116); ALT/SGPT 19 U/L (7.0-40); AST/SGOT 11 U/L (<34); BILIRUBIN,TOTAL 0.3 MG/DL (0.3-1.2); BLOOD UREA NITROGEN 22 MG/DL (9-23); CALCIUM LEVEL 9.2 MG/DL (8.3-10.6); CARBON DIOXIDE LEVEL 30 MMOL/L (20-31); CHLORIDE LEVEL 102 MMOL/L (98-107); CREATININE FOR GFR 0.56 MG/DL (0.55-1.30); GLOMERULAR FILTRATION RATE > 60.0 (>45); GLUCOSE, FASTING 86 MG/DL (74-106); POTASSIUM SERUM 3.6 MMOL/L (3.5-5.1); SODIUM LEVEL 139 MMOL/L (136-145); TOTAL PROTEIN 6.3 G/DL (5.7-8.2)
[2023-01-22] MEDS: APIXABAN 5 MG TAB (ELIQUIS) PO SCH ×2 (09:33→20:31)
[2023-01-22] MEDS: BUMETANIDE 1 MG TAB PO SCH ×2 (09:34→20:31)
[2023-01-22] MEDS: aMILoride 5 MG TAB PO SCH (09:34)
[2023-01-22] MEDS: METOPROLOL TART 25 MG TABLET PO SCH ×2 (09:36→20:31)
[2023-01-22] MEDS: PANTOPRAZOLE 40MG TAB (PROTONIX) PO SCH ×2 (09:36→20:30)
[2023-01-22] MEDS: POTASSIUM CHLORIDE 10MEQ SR TABLET PO SCH (09:37)
[2023-01-22] MEDS: DOCUSATE SODIUM 100MG CAPSULE PO SCH ×2 (09:37→20:31)
[2023-01-22] MEDS: ACETAMINOPHEN TAB 650MG DOSE (2X325MG) PO SCH ×3 (09:37→20:33)
[2023-01-22] MEDS: BACLOFEN 10 MG TAB PO SCH ×3 (09:37→20:30)
[2023-01-22] MEDS: HORSE CHESTNUT PO SCH (09:38)
[2023-01-22] MEDS: TUMERIC CURCUMIN PO SCH (09:39)
[2023-01-22] MEDS: GABAPENTIN 300 MG CAP PO SCH (20:30)
[2023-01-22] MEDS: carisoprodoL 350 MG TAB PO PRN (22:48)
[2023-01-23] MEDS: oxyCODONE 5MG TAB PO PRN ×6 (01:28→22:10)
[2023-01-23 04:20] VITALS: BP 115/66; TEMP 97.9; O2SAT 95
[2023-01-23 06:53] LABS: HEMATOCRIT 31.1 % (36.0-47.0); HEMOGLOBIN 9.8 g/dl (12.0-15.5); MEAN CORPUSCULAR HEMOGLOBIN 28.2 pg (27.0-33.0); MEAN CORPUSCULAR HGB CONC 31.5 g/dl (32.0-36.5); MEAN CORPUSCULAR VOLUME 89.6 fl (80.0-96.0); PLATELET COUNT, AUTOMATED 326 10^3/uL (150-450); RED BLOOD COUNT 3.47 10^6/uL (4.00-5.40); WHITE BLOOD COUNT 4.2 10^3/uL (4.0-10.0)
[2023-01-23 07:16] LABS: ALBUMIN 2.6 G/DL (3.2-5.2); ALKALINE PHOSPHATASE 189 U/L (46-116); ALT/SGPT 16 U/L (7.0-40); AST/SGOT 9 U/L (<34); BILIRUBIN,TOTAL 0.3 MG/DL (0.3-1.2); BLOOD UREA NITROGEN 19 MG/DL (9-23); CALCIUM LEVEL 8.9 MG/DL (8.3-10.6); CARBON DIOXIDE LEVEL 29 MMOL/L (20-31); CHLORIDE LEVEL 104 MMOL/L (98-107); CREATININE FOR GFR 0.62 MG/DL (0.55-1.30); GLOMERULAR FILTRATION RATE > 60.0 (>45); GLUCOSE, FASTING 83 MG/DL (74-106); POTASSIUM SERUM 3.7 MMOL/L (3.5-5.1); SODIUM LEVEL 139 MMOL/L (136-145); TOTAL PROTEIN 5.9 G/DL (5.7-8.2)
[2023-01-23] MEDS: TIOTROPIUM INHALER/CAPSULE (SPIRIVA) INH SCH (07:34)
[2023-01-23] MEDS: FORMOTEROL FUMARATE 20 MCG/2 ML INHALATION SOLUTION (PERFOROMIST) INH SCH ×2 (07:34→20:56)
[2023-01-23] MEDS: DOCUSATE SODIUM 100MG CAPSULE PO SCH ×2 (09:22→21:18)
[2023-01-23] MEDS: ACETAMINOPHEN TAB 650MG DOSE (2X325MG) PO SCH ×3 (09:23→21:19)
[2023-01-23] MEDS: APIXABAN 5 MG TAB (ELIQUIS) PO SCH ×2 (09:24→21:18)
[2023-01-23] MEDS: BACLOFEN 10 MG TAB PO SCH ×3 (09:25→21:19)
[2023-01-23] MEDS: METOPROLOL TART 25 MG TABLET PO SCH ×2 (09:29→21:23)
[2023-01-23] MEDS: PANTOPRAZOLE 40MG TAB (PROTONIX) PO SCH ×2 (09:30→21:19)
[2023-01-23] MEDS: POTASSIUM CHLORIDE 10MEQ SR TABLET PO SCH (09:30)
[2023-01-23] MEDS: HORSE CHESTNUT PO SCH (09:32)
[2023-01-23] MEDS: TUMERIC CURCUMIN PO SCH (09:33)
[2023-01-23] MEDS: BUMETANIDE 1 MG TAB PO SCH ×2 (10:51→21:18)
[2023-01-23] MEDS: aMILoride 5 MG TAB PO SCH (10:51)
[2023-01-23] MEDS: carisoprodoL 350 MG TAB PO PRN ×2 (14:51→22:54)
[2023-01-23] MEDS: GABAPENTIN 300 MG CAP PO SCH (21:18)
[2023-01-24 05:33] VITALS: BP 124/76; TEMP 97.3; O2SAT 97
[2023-01-24 05:47] LABS: HEMATOCRIT 30.7 % (36.0-47.0); HEMOGLOBIN 9.6 g/dl (12.0-15.5); MEAN CORPUSCULAR HEMOGLOBIN 28.2 pg (27.0-33.0); MEAN CORPUSCULAR HGB CONC 31.3 g/dl (32.0-36.5); MEAN CORPUSCULAR VOLUME 90.3 fl (80.0-96.0); PLATELET COUNT, AUTOMATED 305 10^3/uL (150-450); WHITE BLOOD COUNT 3.8 10^3/uL (4.0-10.0)
[2023-01-24 06:14] LABS: ALBUMIN 2.5 G/DL (3.2-5.2); ALKALINE PHOSPHATASE 186 U/L (46-116); ALT/SGPT 14 U/L (7.0-40); AST/SGOT 9 U/L (<34); BILIRUBIN,TOTAL 0.3 MG/DL (0.3-1.2); BLOOD UREA NITROGEN 18 MG/DL (9-23); CALCIUM LEVEL 8.7 MG/DL (8.3-10.6); CARBON DIOXIDE LEVEL 29 MMOL/L (20-31); CHLORIDE LEVEL 102 MMOL/L (98-107); CREATININE FOR GFR 0.74 MG/DL (0.55-1.30); GLOMERULAR FILTRATION RATE > 60.0 (>45); GLUCOSE, FASTING 89 MG/DL (74-106); POTASSIUM SERUM 3.6 MMOL/L (3.5-5.1); SODIUM LEVEL 140 MMOL/L (136-145); TOTAL PROTEIN 5.7 G/DL (5.7-8.2)
[2023-01-24] MEDS: carisoprodoL 350 MG TAB PO PRN ×2 (07:00→12:26)
[2023-01-24] MEDS: oxyCODONE 5MG TAB PO PRN ×3 (07:01→17:34)
[2023-01-24] MEDS: FORMOTEROL FUMARATE 20 MCG/2 ML INHALATION SOLUTION (PERFOROMIST) INH SCH ×2 (07:15→19:48)
[2023-01-24] MEDS: TIOTROPIUM INHALER/CAPSULE (SPIRIVA) INH SCH (07:15)
[2023-01-24] MEDS: aMILoride 5 MG TAB PO SCH (08:21)
[2023-01-24] MEDS: ACETAMINOPHEN TAB 650MG DOSE (2X325MG) PO SCH ×3 (08:21→20:34)
[2023-01-24] MEDS: BUMETANIDE 1 MG TAB PO SCH ×2 (08:22→20:33)
[2023-01-24] MEDS: BACLOFEN 10 MG TAB PO SCH ×3 (08:22→20:33)
[2023-01-24] MEDS: APIXABAN 5 MG TAB (ELIQUIS) PO SCH ×2 (08:22→20:33)
[2023-01-24] MEDS: POTASSIUM CHLORIDE 10MEQ SR TABLET PO SCH (08:22)
[2023-01-24] MEDS: PANTOPRAZOLE 40MG TAB (PROTONIX) PO SCH ×2 (08:22→20:33)
[2023-01-24] MEDS: DOCUSATE SODIUM 100MG CAPSULE PO SCH ×2 (08:22→20:33)
[2023-01-24] MEDS: METOPROLOL TART 25 MG TABLET PO SCH ×2 (08:23→20:38)
[2023-01-24] MEDS: HORSE CHESTNUT PO SCH (08:24)
[2023-01-24] MEDS: TUMERIC CURCUMIN PO SCH (08:24)
[2023-01-24] MEDS: GABAPENTIN 300 MG CAP PO SCH (20:33)
[2023-01-25] MEDS: carisoprodoL 350 MG TAB PO PRN ×3 (01:45→21:59)
[2023-01-25] MEDS: oxyCODONE 5MG TAB PO PRN ×5 (01:45→22:02)
[2023-01-25 05:50] VITALS: BP 116/64; TEMP 97.5; O2SAT 95
[2023-01-25 07:05] LABS: HEMATOCRIT 31.3 % (36.0-47.0); HEMOGLOBIN 9.8 g/dl (12.0-15.5); MEAN CORPUSCULAR HEMOGLOBIN 27.9 pg (27.0-33.0); MEAN CORPUSCULAR HGB CONC 31.3 g/dl (32.0-36.5); MEAN CORPUSCULAR VOLUME 89.2 fl (80.0-96.0); PLATELET COUNT, AUTOMATED 289 10^3/uL (150-450); RED BLOOD COUNT 3.51 10^6/uL (4.00-5.40); WHITE BLOOD COUNT 4.1 10^3/uL (4.0-10.0)
[2023-01-25] MEDS: PANTOPRAZOLE 40MG TAB (PROTONIX) PO SCH ×2 (07:35→22:03)
[2023-01-25] MEDS: POTASSIUM CHLORIDE 10MEQ SR TABLET PO SCH (07:36)
[2023-01-25] MEDS: BACLOFEN 10 MG TAB PO SCH ×3 (07:36→21:00)
[2023-01-25] MEDS: aMILoride 5 MG TAB PO SCH (07:36)
[2023-01-25] MEDS: METOPROLOL TART 25 MG TABLET PO SCH ×2 (07:36→22:04)
[2023-01-25] MEDS: HORSE CHESTNUT PO SCH (07:37)
[2023-01-25] MEDS: ACETAMINOPHEN TAB 650MG DOSE (2X325MG) PO SCH ×3 (07:37→22:03)
[2023-01-25] MEDS: TUMERIC CURCUMIN PO SCH (07:37)
[2023-01-25] MEDS: DOCUSATE SODIUM 100MG CAPSULE PO SCH ×2 (07:38→22:03)
[2023-01-25] MEDS: BUMETANIDE 1 MG TAB PO SCH ×2 (07:38→21:00)
[2023-01-25] MEDS: APIXABAN 5 MG TAB (ELIQUIS) PO SCH ×2 (07:38→22:03)
[2023-01-25 07:41] LABS: ALBUMIN 2.8 G/DL (3.2-5.2); ALKALINE PHOSPHATASE 212 U/L (46-116); ALT/SGPT 14 U/L (7.0-40); AST/SGOT < 8 U/L (<34); BILIRUBIN,TOTAL 0.3 MG/DL (0.3-1.2); BLOOD UREA NITROGEN 19 MG/DL (9-23); CALCIUM LEVEL 8.9 MG/DL (8.3-10.6); CARBON DIOXIDE LEVEL 32 MMOL/L (20-31); CHLORIDE LEVEL 104 MMOL/L (98-107); CREATININE FOR GFR 0.56 MG/DL (0.55-1.30); GLOMERULAR FILTRATION RATE > 60.0 (>45); GLUCOSE, FASTING 82 MG/DL (74-106); POTASSIUM SERUM 3.8 MMOL/L (3.5-5.1); SODIUM LEVEL 143 MMOL/L (136-145); TOTAL PROTEIN 5.9 G/DL (5.7-8.2)
[2023-01-25] MEDS: TIOTROPIUM INHALER/CAPSULE (SPIRIVA) INH SCH (08:42)
[2023-01-25] MEDS: FORMOTEROL FUMARATE 20 MCG/2 ML INHALATION SOLUTION (PERFOROMIST) INH SCH ×2 (08:42→20:02)
[2023-01-25] MEDS: GABAPENTIN 300 MG CAP PO SCH (22:03)
[2023-01-26] MEDS: carisoprodoL 350 MG TAB PO PRN ×5 (03:29→22:12)
[2023-01-26] MEDS: oxyCODONE 5MG TAB PO PRN ×5 (03:30→22:13)
[2023-01-26 06:28] VITALS: BP 106/62; TEMP 97.3; O2SAT 99
[2023-01-26] MEDS: TIOTROPIUM INHALER/CAPSULE (SPIRIVA) INH SCH (07:31)
[2023-01-26] MEDS: FORMOTEROL FUMARATE 20 MCG/2 ML INHALATION SOLUTION (PERFOROMIST) INH SCH ×2 (07:31→19:45)
[2023-01-26] MEDS: BACLOFEN 10 MG TAB PO SCH ×3 (09:00→20:18)
[2023-01-26] MEDS: TUMERIC CURCUMIN PO SCH (09:18)
[2023-01-26] MEDS: HORSE CHESTNUT PO SCH (09:18)
[2023-01-26] MEDS: BUMETANIDE 1 MG TAB PO SCH ×2 (09:20→17:37)
[2023-01-26] MEDS: APIXABAN 5 MG TAB (ELIQUIS) PO SCH ×2 (09:20→20:19)
[2023-01-26] MEDS: DOCUSATE SODIUM 100MG CAPSULE PO SCH ×2 (09:20→20:19)
[2023-01-26] MEDS: aMILoride 5 MG TAB PO SCH (09:20)
[2023-01-26] MEDS: POTASSIUM CHLORIDE 10MEQ SR TABLET PO SCH (09:20)
[2023-01-26] MEDS: PANTOPRAZOLE 40MG TAB (PROTONIX) PO SCH ×2 (09:20→20:19)
[2023-01-26] MEDS: METOPROLOL TART 25 MG TABLET PO SCH ×2 (09:21→20:21)
[2023-01-26] MEDS: ACETAMINOPHEN TAB 650MG DOSE (2X325MG) PO SCH ×3 (09:22→20:20)
[2023-01-26] MEDS: GABAPENTIN 300 MG CAP PO SCH (20:20)
[2023-01-27] MEDS: carisoprodoL 350 MG TAB PO PRN ×5 (03:45→22:34)
[2023-01-27] MEDS: oxyCODONE 5MG TAB PO PRN ×5 (03:46→22:32)
[2023-01-27 05:21] VITALS: BP 112/71; TEMP 97.9; O2SAT 99
[2023-01-27] MEDS: TIOTROPIUM INHALER/CAPSULE (SPIRIVA) INH SCH (07:35)
[2023-01-27] MEDS: FORMOTEROL FUMARATE 20 MCG/2 ML INHALATION SOLUTION (PERFOROMIST) INH SCH ×2 (07:35→19:40)
[2023-01-27] MEDS: POTASSIUM CHLORIDE 10MEQ SR TABLET PO SCH (08:58)
[2023-01-27] MEDS: BUMETANIDE 1 MG TAB PO SCH ×2 (08:59→18:23)
[2023-01-27] MEDS: aMILoride 5 MG TAB PO SCH (08:59)
[2023-01-27] MEDS: BACLOFEN 10 MG TAB PO SCH ×3 (09:00→20:48)
[2023-01-27] MEDS: APIXABAN 5 MG TAB (ELIQUIS) PO SCH ×2 (09:00→20:47)
[2023-01-27] MEDS: PANTOPRAZOLE 40MG TAB (PROTONIX) PO SCH ×2 (09:00→20:49)
[2023-01-27] MEDS: DOCUSATE SODIUM 100MG CAPSULE PO SCH ×2 (09:01→20:48)
[2023-01-27] MEDS: ACETAMINOPHEN TAB 650MG DOSE (2X325MG) PO SCH ×3 (09:01→20:47)
[2023-01-27] MEDS: METOPROLOL TART 25 MG TABLET PO SCH ×2 (09:01→20:48)
[2023-01-27] MEDS: TUMERIC CURCUMIN PO SCH (09:02)
[2023-01-27] MEDS: HORSE CHESTNUT PO SCH (09:02)
[2023-01-27] MEDS: GABAPENTIN 300 MG CAP PO SCH (20:47)
[2023-01-28] MEDS: carisoprodoL 350 MG TAB PO PRN ×3 (02:40→13:28)
[2023-01-28] MEDS: oxyCODONE 5MG TAB PO PRN ×3 (02:41→13:28)
[2023-01-28 06:00] VITALS: BP 118/72; TEMP 97.7; O2SAT 97
[2023-01-28] MEDS: FORMOTEROL FUMARATE 20 MCG/2 ML INHALATION SOLUTION (PERFOROMIST) INH SCH (07:25)
[2023-01-28] MEDS: TIOTROPIUM INHALER/CAPSULE (SPIRIVA) INH SCH (07:25)
[2023-01-28 09:00] VITALS: BP 118/72
[2023-01-28] MEDS: BACLOFEN 10 MG TAB PO SCH (09:00)
[2023-01-28] MEDS: ACETAMINOPHEN TAB 650MG DOSE (2X325MG) PO SCH (09:00)
[2023-01-28] MEDS: METOPROLOL TART 25 MG TABLET PO SCH (09:00)
[2023-01-28] MEDS: PANTOPRAZOLE 40MG TAB (PROTONIX) PO SCH (09:00)
[2023-01-28] MEDS: BUMETANIDE 1 MG TAB PO SCH (09:01)
[2023-01-28] MEDS: POTASSIUM CHLORIDE 10MEQ SR TABLET PO SCH (09:01)
[2023-01-28] MEDS: DOCUSATE SODIUM 100MG CAPSULE PO SCH (09:01)
[2023-01-28] MEDS: aMILoride 5 MG TAB PO SCH (09:01)
[2023-01-28] MEDS: APIXABAN 5 MG TAB (ELIQUIS) PO SCH (09:01)
[2023-01-28] MEDS: TUMERIC CURCUMIN PO SCH (09:02)
[2023-01-28] MEDS: HORSE CHESTNUT PO SCH (09:02)
[2023-01-28] MEDS ORDERED: COLA100C5 PO (11:12)
[2023-01-28] MEDS ORDERED: OXYC-517 PO (11:12)
[2023-01-28] MEDS ORDERED: ACET1TAB55 PO (11:12)
[2023-01-28] MEDS ORDERED: BUME1TAB3 PO (11:12)
[2023-01-28] MEDS ORDERED: CARI1TAB7 PO (11:12)
[2023-01-28] MEDS ORDERED: ELIQ5TAB PO (11:12)
[2023-01-28] MEDS ORDERED: METO1TAB87 PO (11:39)
== END 2023-01-28 13:30 | disposition home health service (06) | DRG 480 ==
LOC: M ED 15:57 → EDBD 15:57 → M ED INP 17:56 → M MS4PR 20:50 → M ICU 01-08 19:32 → M PCU 01-11 18:44 → M MS5PR 01-15 18:30
PROVIDERS: ADMIT Internal Medicine; ATTEND Internal Medicine Nephrology
PROC: 0QS734Z Reposition Left Upper Femur with Internal Fixation Device, Percutaneous Approach (ICD-10-PCS; principal; 2023-01-07)
PROC: 30233N1 Transfusion of Nonautologous Red Blood Cells into Peripheral Vein, Percutaneous Approach (ICD-10-PCS; 2023-01-07)
PROC: 06H03DZ Insertion of Intraluminal Device into Inferior Vena Cava, Percutaneous Approach (ICD-10-PCS; 2023-01-09)
PROC: 0Y3 Anatomical Regions, Lower Extremities, Control (ICD-10-PCS; 2023-01-10)
PROC: 0HDJXZZ Extraction of Left Upper Leg Skin, External Approach (ICD-10-PCS; 2023-01-10)
PROC: B246ZZZ Ultrasonography of Right and Left Heart (ICD-10-PCS; 2023-01-11)
DX: S72.142A Displaced intertrochanteric fracture of left femur, initial encounter for closed fracture (principal); I26.99 Other pulmonary embolism without acute cor pulmonale; I50.33 Acute on chronic diastolic (congestive) heart failure; D47.Z2 Castleman disease; M96.840 Postprocedural hematoma of a musculoskeletal structure following a musculoskeletal system procedure; D62 Acute posthemorrhagic anemia; I82.403 Acute embolism and thrombosis of unspecified deep veins of lower extremity, bilateral; Z68.41 Body mass index [BMI] 40.0-44.9, adult; I11.0 Hypertensive heart disease with heart failure; J45.909 Unspecified asthma, uncomplicated; K21.9 Gastro-esophageal reflux disease without esophagitis; R32 Unspecified urinary incontinence; M54.31 Sciatica, right side; M54.32 Sciatica, left side; I87.8 Other specified disorders of veins; I87.2 Venous insufficiency (chronic) (peripheral); M48.00 Spinal stenosis, site unspecified; R26.89 Other abnormalities of gait and mobility; Z96.651 Presence of right artificial knee joint; Z90.49 Acquired absence of other specified parts of digestive tract; Z90.79 Acquired absence of other genital organ(s); W01.0XXA Fall on same level from slipping, tripping and stumbling without subsequent striking against object, initial encounter; Y92.009 Unspecified place in unspecified non-institutional (private) residence as the place of occurrence of the external cause; M25.511 Pain in right shoulder; E87.6 Hypokalemia; Z79.82 Long term (current) use of aspirin; Z79.899 Other long term (current) drug therapy; Z91.040 Latex allergy status; Z91.018 Allergy to other foods; Z88.8 Allergy status to other drugs, medicaments and biological substances; Z20.822 Contact with and (suspected) exposure to COVID-19; D69.6 Thrombocytopenia, unspecified; E66.01 Morbid (severe) obesity due to excess calories; I27.20 Pulmonary hypertension, unspecified

== ENCOUNTER → 2023-03-16 | Outpatient (CLI) | payer MEDICARE ==
[~2023-03-16] MED LIST changes: +ACET1TAB55 PO; +BACL10TA2 PO; +BUME1TAB3 PO; +CARI1TAB7 PO; +CHLO125TA PO; +COLA100C5 PO; +ELIQ5TAB PO; +FLON27.5 NARES; +GABA600T4 PO; +LEVA1.2525 INH; +OXYC-517 PO
== END ==
LOC: M SOG 11:06
PROVIDERS: ATTEND Orthopaedic Surgery
DX: S72.142A Displaced intertrochanteric fracture of left femur, initial encounter for closed fracture (principal); Y93.9 Activity, unspecified; Y92.9 Unspecified place or not applicable

== ENCOUNTER → 2023-04-11 | Outpatient (CLI) | payer MEDICARE | LOC: M RAD 07:40 | PROVIDERS: ATTEND Physical Medicine & Rehabilitation | DX: M25.511 Pain in right shoulder (principal) ==

== ENCOUNTER → 2023-04-21 | Outpatient (REF) | payer MEDICARE | LOC: M LAB REF 16:50 | PROVIDERS: ATTEND Internal Medicine | DX: M25.50 Pain in unspecified joint (principal) ==

== ENCOUNTER → 2023-04-27 | Outpatient (CLI) | payer MEDICARE | LOC: M SOG 11:08 | PROVIDERS: ATTEND Physician Assistant | DX: S72.142D Displaced intertrochanteric fracture of left femur, subsequent encounter for closed fracture with routine healing (principal); Y93.9 Activity, unspecified; Y92.9 Unspecified place or not applicable ==

== ENCOUNTER → 2023-05-23 | Outpatient (CLI) | payer MEDICARE ==
[2023-05-23 13:54] LABS: CALCIUM LEVEL 9.4 MG/DL (8.3-10.6)
[2023-05-23 13:59] LABS: TOTAL 25(OH) VITAMIN D 57.6 NG/ML (20.0-100.0)
== END ==
LOC: M PLALAB 09:42
PROVIDERS: ATTEND Nurse Practitioner Family
DX: M81.0 Age-related osteoporosis without current pathological fracture (principal)

== ENCOUNTER → 2023-05-23 | Outpatient (CLI) | payer MEDICARE | LOC: M WHC 09:35 | PROVIDERS: ATTEND Nurse Practitioner Family | DX: M85.851 Other specified disorders of bone density and structure, right thigh (principal) ==

== ENCOUNTER → 2023-06-06 | Outpatient (CLI) | payer MEDICARE ==
[2023-06-06 14:33] LABS: BASO % 0.7 % (0.0-1.0); EOS # 0.2 10^3/uL (0.0-0.5); EOS % 3.9 % (0.0-3.0); HEMATOCRIT 41.3 % (36.0-47.0); LYMPH # 1.1 10^3/uL (1.5-5.0); LYMPH % 18.8 % (24.0-44.0); MEAN CORPUSCULAR HEMOGLOBIN 27.2 pg (27.0-33.0); MEAN CORPUSCULAR HGB CONC 31.5 g/dl (32.0-36.5); MEAN CORPUSCULAR VOLUME 86.4 fl (80.0-96.0); MONO # 0.7 10^3/uL (0.0-0.8); MONO % 12.9 % (2.0-8.0); NEUTROPHILS # 3.6 10^3/uL (1.5-8.5); NEUTROPHILS % 63.5 % (36.0-66.0); PLATELET COUNT, AUTOMATED 251 10^3/uL (150-450); RED BLOOD COUNT 4.78 10^6/uL (4.00-5.40); WHITE BLOOD COUNT 5.6 10^3/uL (4.0-10.0)
[2023-06-06 14:36] LABS: THYROXINE (T4) 8.7 UG/DL (4.5-10.9)
[2023-06-06 14:40] LABS: HEMOGLOBIN A1c 5.8 % (4.0-6.0); VITAMIN B12 LEVEL 533 PG/ML (211-911)
[2023-06-06 14:42] LABS: ALBUMIN 3.7 G/DL (3.2-5.2); ALKALINE PHOSPHATASE 163 U/L (46-116); ALT/SGPT 14 U/L (7.0-40); AST/SGOT 13 U/L (<34); BILIRUBIN,TOTAL 0.4 MG/DL (0.3-1.2); BLOOD UREA NITROGEN 23 MG/DL (9-23); CALCIUM LEVEL 10.1 MG/DL (8.3-10.6); CARBON DIOXIDE LEVEL 33 MMOL/L (20-31); CHLORIDE LEVEL 104 MMOL/L (98-107); CREATININE FOR GFR 0.64 MG/DL (0.55-1.30); GLOMERULAR FILTRATION RATE > 60.0 (>45); GLUCOSE, FASTING 93 MG/DL (74-106); POTASSIUM SERUM 3.8 MMOL/L (3.5-5.1); SODIUM LEVEL 143 MMOL/L (136-145); TOTAL PROTEIN 7.2 G/DL (5.7-8.2)
[2023-06-06 14:43] LABS: FOLATE > 24.0 NG/ML (>5.4)
[2023-06-06 14:46] LABS: FREE THYROXINE INDEX 3.1 % (1.3-4.8); T UPTAKE 35.8 % (22.5-37.0)
== END ==
LOC: M PLALAB 10:51
PROVIDERS: ATTEND Psychiatry & Neurology Neurology
DX: E11.9 Type 2 diabetes mellitus without complications (principal); E07.9 Disorder of thyroid, unspecified; E53.8 Deficiency of other specified B group vitamins; R26.89 Other abnormalities of gait and mobility

== ENCOUNTER → 2023-09-07 | Outpatient (CLI) | payer MEDICARE | LOC: M SOG 10:52 | PROVIDERS: ATTEND Physician Assistant | DX: S72.142D Displaced intertrochanteric fracture of left femur, subsequent encounter for closed fracture with routine healing (principal) ==

== ENCOUNTER → 2023-11-03 | Outpatient (CLI) | payer MEDICARE, OTHER ==
[~2023-11-03] MED LIST changes: +RAMI1.258 PO; -RAMI1CAP21 PO; -RAMI1CAP22 PO; +RAMI2.5C42 PO
[2023-11-03 17:49] LABS: INR 1.11; PARTIAL THROMBOPLASTIN TIME 34.6 SECONDS (24.8-34.2)
== END ==
LOC: M PLAIMG 15:12
PROVIDERS: ATTEND Internal Medicine
DX: Z79.01 Long term (current) use of anticoagulants (principal); M79.671 Pain in right foot

== ENCOUNTER → 2024-01-09 | Outpatient (REF) | payer MEDICARE, OTHER | LOC: M LAB REF 16:56 | PROVIDERS: ATTEND Internal Medicine | DX: I50.9 Heart failure, unspecified (principal) ==

== ENCOUNTER → 2024-02-02 | Outpatient (REF) | payer MEDICARE, OTHER ==
[~2024-02-02] MED LIST changes: +GABA-1490 PO; -GABA600T4 PO
== END ==
LOC: M LAB REF 12:55
PROVIDERS: ATTEND Internal Medicine
DX: I50.32 Chronic diastolic (congestive) heart failure (principal)

== ENCOUNTER → 2024-03-13 | Outpatient (REF) | payer MEDICARE, OTHER ==
[2024-03-13 18:05] LABS: PERCENT SATURATION 20.2 % (13.2-45.0)
[2024-03-13 18:12] LABS: FERRITIN 296.6 NG/ML (7.3-270.7)
== END ==
LOC: M LAB REF 16:52
PROVIDERS: ATTEND Internal Medicine
DX: I50.32 Chronic diastolic (congestive) heart failure (principal)

== ENCOUNTER → 2024-04-24 | Outpatient (CLI) | payer MEDICARE, OTHER ==
[~2024-04-24] MED LIST changes: +ISOVUE-370 76% 100ML VIAL As Ordered ONE; +LEVA15HF2 INH; -LEVAINH INH
[2024-04-24 15:38] LABS: C REACTIVE PROTEIN QUANTITATIV 11.76 MG/DL (<1.0)
== END ==
LOC: M RAD 11:54
PROVIDERS: ATTEND Internal Medicine
DX: R10.9 Unspecified abdominal pain (principal); J98.11 Atelectasis; Z90.49 Acquired absence of other specified parts of digestive tract; R93.2 Abnormal findings on diagnostic imaging of liver and biliary tract
CPT/HCPCS: 74177; 83690; 86140; Q9967

== ENCOUNTER → 2024-04-25 | Outpatient (REF) | payer MEDICARE, OTHER ==
[~2024-04-25] MED LIST changes: -ISOVUE-370 76% 100ML VIAL As Ordered ONE
== END ==
LOC: M LAB REF 14:11
PROVIDERS: ATTEND Internal Medicine
DX: R16.0 Hepatomegaly, not elsewhere classified (principal); D37.6 Neoplasm of uncertain behavior of liver, gallbladder and bile ducts

== ENCOUNTER → 2024-04-26 | Outpatient (CLI) | payer MEDICARE, OTHER | LOC: M PLARAD 14:31 | PROVIDERS: ATTEND Internal Medicine | DX: D37.6 Neoplasm of uncertain behavior of liver, gallbladder and bile ducts (principal) ==

== ENCOUNTER → 2024-05-14 | Outpatient (REF) | payer MEDICARE, OTHER ==
[2024-05-14 12:58] LABS: INR 1.18; PARTIAL THROMBOPLASTIN TIME 30.6 SECONDS (24.8-34.2); PROTHROMBIN TIME 15.3 SECONDS (12.5-14.5)
== END ==
LOC: M LAB REF 12:15
PROVIDERS: ATTEND Internal Medicine
DX: D37.6 Neoplasm of uncertain behavior of liver, gallbladder and bile ducts (principal); Z79.01 Long term (current) use of anticoagulants

== ENCOUNTER → 2024-05-17 | Outpatient (CLI) | payer MEDICARE, OTHER ==
[~2024-05-17] MED LIST changes: +ACETAMINOPHEN 325 MG TAB PO PRN; +LIDOCAINE 1% MDV 20ML VIAL As Ordered ONE
[2024-05-17 07:05] VITALS: TEMP 97.4
[2024-05-17 10:13] VITALS: BP 119/70; O2SAT 98
== END ==
LOC: M IRPRO 06:58
PROVIDERS: ATTEND Internal Medicine
DX: C22.7 Other specified carcinomas of liver (principal)

== ENCOUNTER → 2024-07-15 | Outpatient (CLI) | payer MEDICARE, OTHER ==
[~2024-07-15] MED LIST changes: -ACETAMINOPHEN 325 MG TAB PO PRN; +CARI-555 PO; -CARI1TAB7 PO; -LIDOCAINE 1% MDV 20ML VIAL As Ordered ONE
[2024-07-15 18:16] LABS: ALBUMIN 3.9 G/DL (3.2-5.2); ALKALINE PHOSPHATASE 244 U/L (35-104); ALT/SGPT 15 U/L (7.0-40); AST/SGOT 15 U/L (<34); BASO # 0.1 10^3/uL (0.0-0.2); BASO % 0.8 % (0.0-1.0); BILIRUBIN,TOTAL 0.5 MG/DL (0.3-1.2); BLOOD UREA NITROGEN 19 MG/DL (9-23); CALCIUM LEVEL 9.9 MG/DL (8.3-10.6); CARBON DIOXIDE LEVEL 36 MMOL/L (20-31); CHLORIDE LEVEL 98 MMOL/L (98-107); CREATININE FOR GFR 0.75 MG/DL (0.55-1.30); EOS # 0.1 10^3/uL (0.0-0.5); EOS % 1.5 % (0.0-3.0); GLOMERULAR FILTRATION RATE > 60.0 (>45); GLUCOSE, FASTING 91 MG/DL (74-106); HEMATOCRIT 41.5 % (36.0-47.0); HEMOGLOBIN 12.8 g/dl (12.0-15.5); LYMPH # 1.1 10^3/uL (1.5-5.0); LYMPH % 16.6 % (24.0-44.0); MEAN CORPUSCULAR HEMOGLOBIN 27.4 pg (27.0-33.0); MEAN CORPUSCULAR HGB CONC 30.8 g/dl (32.0-36.5); MEAN CORPUSCULAR VOLUME 88.7 fl (80.0-96.0); MONO # 0.7 10^3/uL (0.0-0.8); MONO % 10.4 % (2.0-8.0); NEUTROPHILS # 4.7 10^3/uL (1.5-8.5); NEUTROPHILS % 70.5 % (36.0-66.0); PLATELET COUNT, AUTOMATED 320 10^3/uL (150-450); POTASSIUM SERUM 4.5 MMOL/L (3.5-5.1); RED BLOOD COUNT 4.68 10^6/uL (4.00-5.40); SODIUM LEVEL 143 MMOL/L (136-145); TOTAL PROTEIN 7.9 G/DL (5.7-8.2); WHITE BLOOD COUNT 6.6 10^3/uL (4.0-10.0)
[2024-07-15 18:36] LABS: CA19-9 TUMOR MARKER,CARBOHYDRA < 1.2 U/ML (<35.0)
== END ==
LOC: M PLALAB 14:23
PROVIDERS: ATTEND Internal Medicine
DX: C22.1 Intrahepatic bile duct carcinoma (principal)

== ENCOUNTER → 2024-08-07 | Outpatient (CLI) | payer OTHER, MEDICARE | LOC: M RAD 10:41 | PROVIDERS: ATTEND Physician Assistant | DX: Z86.718 Personal history of other venous thrombosis and embolism (principal); Z86.711 Personal history of pulmonary embolism; Z95.828 Presence of other vascular implants and grafts ==

== ENCOUNTER → 2024-08-19 | Outpatient (CLI) | payer MEDICARE, OTHER ==
[~2024-08-19] MED LIST changes: +ISOVUE-370 76% 100ML VIAL ONE
== END ==
LOC: M PLAIMG 11:17
PROVIDERS: ATTEND Internal Medicine
DX: C22.1 Intrahepatic bile duct carcinoma (principal); R59.0 Localized enlarged lymph nodes; R91.1 Solitary pulmonary nodule
CPT/HCPCS: 71260; 74177; Q9967

== ENCOUNTER → 2024-09-11 | Outpatient (CLI) | payer OTHER, MEDICARE ==
[~2024-09-11] MED LIST changes: -ISOVUE-370 76% 100ML VIAL ONE
[2024-09-11 08:35] VITALS: TEMP 97.1
[2024-09-11] MEDS: LIDOCAINE 1% MDV 20ML VIAL SC ONE (09:29)
[2024-09-11 10:15] VITALS: BP 108/65; O2SAT 100
== END ==
LOC: M IRPRO 08:18
PROVIDERS: ATTEND Internal Medicine
DX: C22.1 Intrahepatic bile duct carcinoma (principal)

== ENCOUNTER → 2024-11-14 | Outpatient (CLI) | payer MEDICARE, OTHER ==
[2024-11-14 15:28] LABS: BASO # 0.0 10^3/uL (0.0-0.2); BASO % 0.8 % (0.0-1.0); EOS # 0.0 10^3/uL (0.0-0.5); EOS % 1.0 % (0.0-3.0); LYMPH # 0.9 10^3/uL (1.5-5.0); LYMPH % 22.7 % (24.0-44.0); MONO # 0.7 10^3/uL (0.0-0.8); MONO % 18.0 % (2.0-8.0); NEUTROPHILS # 2.1 10^3/uL (1.5-8.5); NEUTROPHILS % 55.7 % (36.0-66.0); PLATELET COUNT, AUTOMATED 100 10^3/uL (150-450)
[2024-11-14 15:36] LABS: ALT/SGPT 15 U/L (7.0-40); AST/SGOT 15 U/L (<34); CALCIUM LEVEL 9.5 MG/DL (8.3-10.6); CARBON DIOXIDE LEVEL 33 MMOL/L (20-31); CHLORIDE LEVEL 97 MMOL/L (98-107); CREATININE FOR GFR 0.68 MG/DL (0.55-1.30); GLOMERULAR FILTRATION RATE > 90.0 (>45); MAGNESIUM LEVEL 2.0 MG/DL (1.8-2.4); PHOSPHORUS LEVEL 3.6 MG/DL (2.4-5.1); POTASSIUM SERUM 3.7 MMOL/L (3.5-5.1); SODIUM LEVEL 142 MMOL/L (136-145)
== END ==
LOC: M PLALAB 11:47
PROVIDERS: ATTEND Nurse Practitioner
DX: C22.1 Intrahepatic bile duct carcinoma (principal)

== ENCOUNTER → 2024-12-31 | Outpatient (CLI) | payer OTHER, MEDICARE | LOC: M PLAIMG 14:36 | PROVIDERS: ATTEND Internal Medicine Gastroenterology | DX: K56.41 Fecal impaction (principal); K59.00 Constipation, unspecified ==

== ENCOUNTER → 2025-01-09 | Outpatient (CLI) | payer OTHER, MEDICARE | LOC: M PLAIMG 16:01 | PROVIDERS: ATTEND Internal Medicine Gastroenterology | DX: C22.1 Intrahepatic bile duct carcinoma (principal) ==